=== PATIENT | female | born 1970 | race African-American/Black ===

== ENCOUNTER 2018-03-05 12:39 | Observation (INO) | payer BC, OTHER ==
[2018-03-05] MEDS ORDERED: Sodium Chloride 0.9% 1,000 ML IV ONE ×2 (13:13→17:26)
[2018-03-05] MEDS ORDERED: Ondansetron 4 MG/2 ML SDV IVPUSH ONE (13:13)
[2018-03-05] MEDS ORDERED: Ketorolac 30 MG/ML SDV IVPUSH ONE (13:13)
[2018-03-05] MEDS ORDERED: Morphine 2 MG/ML Syringe IVPUSH ONE ×3 (13:25→17:26)
--- NOTE | 2018-03-05 13:42 | EDM.PDOC ---
ED HPI GENERAL MEDICAL PROBLEM - General Chief Complaint: Abdominal Pain Stated Complaint: LOWER RIGHT QUADRANT ABDOMINAL PAIN Time Seen by Provider: 03/05/18 13:14 Source of Information: Reports: Patient History Limitations: Reports: No Limitations - History of Present Illness INITIAL COMMENTS - FREE TEXT/NARRATIVE: HISTORY AND PHYSICAL: History of present illness: Patient is a 47-year-old female who presents to the emergency room with complaints of right lower quadrant pain. Dates yesterday she did have some generalized low abdominal/pelvic discomfort but was woken up this morning at 7 AM with right lower quadrant pain. She did have an emesis 1. She states that the pain is worse with palpation and movement. Has mild nausea associated with pain. Denies any fever, chills, chest pain, shortness of breath or cough. Denies any vaginal bleeding/discharge, dysuria, diarrhea or constipation. Past ate food at 7 AM, last drink water at 1200. Review of systems: As per history of present illness and below otherwise all systems reviewed and negative. Past medical history: As per history of present illness and as reviewed below otherwise noncontributory. Surgical history: As per history of present illness and as reviewed below otherwise noncontributory. Social history: No reported history of drug or alcohol abuse. Family history: As per history of present illness and as reviewed below otherwise noncontributory. Physical exam: General: Well-developed and well-nourished 47-year-old -[place] female. Alert and oriented. Nontoxic appearing and in no acute distress. HEENT: Atraumatic, normocephalic, pupils equal and reactive bilaterally, negative for conjunctival pallor or scleral icterus, mucous membranes moist, throat clear, neck supple, nontender, trachea midline. No drooling or trismus noted. No meningeal signs Lungs: Clear to auscultation, breath sounds equal bilaterally, chest nontender. Heart: S1S2, regular rate and rhythm without overt murmur Abdomen: Soft, nondistended, right lower quadrant tenderness with rebound tenderness and guarding. Negative for masses or hepatosplenomegaly. Negative for costovertebral tenderness. Pelvis: Stable nontender. Genitourinary: Deferred. Rectal: Deferred. Skin: Intact, warm, dry. No lesions or rashes noted. Extremities: Atraumatic, negative for cords or calf pain. Neurovascular unremarkable. Neuro: Awake, alert, oriented. Cranial nerves II through XII unremarkable. Cerebellum unremarkable. Motor and sensory unremarkable throughout. Exam nonfocal. Notes: Patient has an elevated WBC at 25.06, with RLQ. Dr Leon was paged and informed of this patient, as it is likely an appendicitis. He would like the CT report prior to coming into the ER. CT was read at 1515: But does not give any information about her appendix. Staff is checking with [facility] to have this reviewed again. There is a delay in the official CT report as he did not give any information on the appendix. Staff has informed [facility] and they are having this report/skin reviewed patient is aware of the elevated WBC and delay and CT reading. She states that her pain is starting to return. We'll give her more morphine at this time. 1620: [facility] re-reviewed CT scan. They do not that there is some stranding, nonfocal, of the right lower quadrant but are unable to visualize the appendix. Structures in the right adnexa. This information was shared with , he will come see the patient. 1645: Dr Leon here to see patient. Will admit to observation. Carolyn ordered further CT imaging on this patient. Diagnostics: CBC, CMP, UA, urine , CT abdomen and pelvis Therapeutics: IV fluid, Zofran, Toradol, morphine, Rocephin Impression: Leukocytosis Abdominal Pain Plan: Observation to Med/Surg Definitive disposition and diagnosis as appropriate pending reevaluation and review of above. Onset: Today Duration: Hour(s): Location: Reports: Abdomen Right Lower Abdominal Pain Score (Numeric/FACES): 10 - Related Data Allergies Allergy/AdvReac Type Severity Reaction Status Date / Time erythromycin base Allergy Hives Verified 03/05/18 12:57 Penicillins Allergy Hives Verified 03/05/18 12:57 Sulfa (Sulfonamide Allergy Hives Verified 03/05/18 12:57 Antibiotics) Home Meds: Home Meds Amitriptyline [Elavil] 10 mg PO BEDTIME 06/08/16 [History] Gluc/Kieran-Msm#2/C/D3/Orville/Born [Npeofqntfa-Fotvomiksbj-YNL] 1 tab PO DAILY 06/08 [History] Losartan/Hydrochlorothiazide [Losartan-HCTZ 50-12.5 MG] 1 tab PO DAILY 06/08/16 [History] Ferrous Sulfate [Iron] 1 tab PO DAILY 03/05/18 [History] Labetalol HCl [Labetalol] 100 mg PO BID 03/05/18 [History] Past Medical History HEENT History: Reports: Other (See Below) Other HEENT History: wears glasses Cardiovascular History: Reports: Hypertension Other Cardiovascular History: "murmur as a child" Gastrointestinal History: Reports: Colon Polyp, Other (See Below) Other Gastrointestinal History: occasional heartburn SECURITY ASSOCIATE History: Reports: , Spontaneous Other SECURITY ASSOCIATE History: hx of hysteroscopy Musculoskeletal History: Reports: Osteoarthritis Neurological History: Reports: Migraines, TIA Hematologic History: Reports: Anemia - Past Surgical History Head Surgeries/Procedures: Reports: None HEENT Surgical History: Reports: Oral Surgery Female Surgical History: Reports: Breast Biopsy Social & Family History - Family History Family Medical History: Noncontributory - Tobacco Use Smoking Status *Q: Never Smoker - Caffeine Use Caffeine Use: Reports: Soda - Recreational Drug Use Recreational Drug Use: No ED ROS GENERAL - Review of Systems Review Of Systems: ROS reveals no pertinent complaints other than HPI. ED EXAM, GI/ABD - Physical Exam Exam: See Below (See dictation) Course - Vital Signs Last Recorded V/S: Last Vital Signs Temp 98.1 F 03/05/18 14:39 Pulse 92 03/05/18 14:39 Resp 16 03/05/18 14:39 BP 164/89 H 03/05/18 14:39 Pulse Ox 98 03/05/18 14:39 - Orders/Labs/Meds Orders: Active Orders 24 hr Category Date Time Status Admission Status [Patient Status] [ADT] Stat ADT 03/05/18 17:22 Ordered Notify Provider Consults [RC] ASDIRECTED Care 03/05/18 17:23 Ordered Consult to Physician [CONS] Stat Cons 03/05/18 17:22 Ordered Abdomen Pelvis w Cont [CT] Stat Exams 03/05/18 17:14 Ordered Abdomen Pelvis wo Cont [CT] Stat Exams 03/05/18 13:31 Taken Labs: Laboratory Tests 03/05/18 03/05/18 03/05/18 Range/Units 13:12 13:12 13:17 WBC 25.06 H (4.0-11.0) K/uL RBC 4.58 (4.30-5.90) M/uL Hgb 9.6 L (12.0-16.0) g/dL Hct 32.9 L (36.0-46.0) % MCV 71.8 L (80.0-98.0) fL MCH 21.0 L (27.0-32.0) pg MCHC 29.2 L (31.0-37.0) g/dL RDW Std Deviation 42.6 (28.0-62.0) fl RDW Coeff of Ryanne 16 H (11.0-15.0) % Plt Count 293 (150-400) K/uL MPV 11.30 (7.40-12.00) fL Neut % (Auto) 90.5 H (48.0-80.0) % Lymph % (Auto) 2.0 L (16.0-40.0) % [place] % (Auto) 7.4 (0.0-15.0) % Eos % (Auto) 0.0 (0.0-7.0) % Baso % (Auto) 0.1 (0.0-1.5) % Neut # (Auto) 22.7 H (1.4-5.7) K/uL Lymph # (Auto) 0.5 L (0.6-2.4) K/uL [place] # (Auto) 1.9 H (0.0-0.8) K/uL Eos # (Auto) 0.0 (0.0-0.7) K/uL Baso # (Auto) 0.0 (0.0-0.1) K/uL Nucleated RBC % 0.0 /100WBC Nucleated RBCs # 0 K/uL Sodium (136-145) mmol/L Potassium (3.5-5.1) mmol/L Chloride (98-107) mmol/L Carbon Dioxide (21.0-32.0) mmol/L BUN (7.0-18.0) mg/dL Creatinine (0.6-1.0) mg/dL Est Cr Clr Drug Dosing mL/min Estimated GFR (MDRD) ml/min Glucose (74-106) mg/dL Calcium (8.5-10.1) mg/dL Total Bilirubin (0.2-1.0) mg/dL AST (15-37) IU/L ALT (14-63) IU/L Alkaline Phosphatase (46-116) U/L Total Protein (6.4-8.2) g/dL Albumin (3.4-5.0) g/dL Globulin (2.0-3.5) g/dL Albumin/Globulin Ratio (1.3-2.8) Urine Color YELLOW Urine Appearance CLEAR Urine pH 6.5 (5.0-8.0) Ur Specific [place] 1.020 (1.001-1.035) Urine Protein NEGATIVE (NEGATIVE) mg/dL Urine Glucose (UA) 100 H (NEGATIVE) mg/dL Urine Ketones NEGATIVE (NEGATIVE) mg/dL Urine Occult Blood NEGATIVE (NEGATIVE) Urine Nitrite NEGATIVE (NEGATIVE) Urine Bilirubin NEGATIVE (NEGATIVE) Urine Urobilinogen 0.2 (<2.0) EU/dL Ur Leukocyte Esterase NEGATIVE (NEGATIVE) Urine RBC 0-1 (0-2/HPF) Urine WBC 0-1 (0-5/HPF) Ur Epithelial Cells MODERATE (NONE-FEW) Urine Bacteria FEW (NEGATIVE) Urine Mucus LIGHT (NONE-MOD) Urine HCG, Qual NEGATIVE (NEGATIVE) 03/05/18 Range/Units 13:17 WBC (4.0-11.0) K/uL RBC (4.30-5.90) M/uL Hgb (12.0-16.0) g/dL Hct (36.0-46.0) % MCV (80.0-98.0) fL MCH (27.0-32.0) pg MCHC (31.0-37.0) g/dL RDW Std Deviation (28.0-62.0) fl RDW Coeff of [place] (11.0-15.0) % Plt Count (150-400) K/uL MPV (7.40-12.00) fL Neut % (Auto) (48.0-80.0) % Lymph % (Auto) (16.0-40.0) % [place] % (Auto) (0.0-15.0) % Eos % (Auto) (0.0-7.0) % Baso % (Auto) (0.0-1.5) % Neut # (Auto) (1.4-5.7) K/uL Lymph # (Auto) (0.6-2.4) K/uL [place] # (Auto) (0.0-0.8) K/uL Eos # (Auto) (0.0-0.7) K/uL Baso # (Auto) (0.0-0.1) K/uL Nucleated RBC % /100WBC Nucleated RBCs # K/uL Sodium 136 (136-145) mmol/L Potassium 3.3 L (3.5-5.1) mmol/L Chloride 101 (98-107) mmol/L Carbon Dioxide 26.7 (21.0-32.0) mmol/L BUN 9 (7.0-18.0) mg/dL Creatinine 0.8 (0.6-1.0) mg/dL Est Cr Clr Drug Dosing 84.54 mL/min Estimated GFR (MDRD) > 60.0 ml/min Glucose 131 H (74-106) mg/dL Calcium 9.1 (8.5-10.1) mg/dL Total Bilirubin 1.3 H (0.2-1.0) mg/dL AST 9 L (15-37) IU/L ALT 13 L (14-63) IU/L Alkaline Phosphatase 49 (46-116) U/L Total Protein 7.9 (6.4-8.2) g/dL Albumin 4.1 (3.4-5.0) g/dL Globulin 3.8 H (2.0-3.5) g/dL Albumin/Globulin Ratio 1.1 L (1.3-2.8) Urine Color Urine Appearance Urine pH (5.0-8.0) Ur Specific [place] (1.001-1.035) Urine Protein (NEGATIVE) mg/dL Urine Glucose (UA) (NEGATIVE) mg/dL Urine Ketones (NEGATIVE) mg/dL Urine Occult Blood (NEGATIVE) Urine Nitrite (NEGATIVE) Urine Bilirubin (NEGATIVE) Urine Urobilinogen (<2.0) EU/dL Ur Leukocyte Esterase (NEGATIVE) Urine RBC (0-2/HPF) Urine WBC (0-5/HPF) Ur Epithelial Cells (NONE-FEW) Urine Bacteria (NEGATIVE) Urine Mucus (NONE-MOD) Urine HCG, Qual (NEGATIVE) Meds: Medications Discontinued Medications Generic Name Dose Route Start Last Admin Trade Name Freq PRN Reason Stop Dose Admin Sodium Chloride 1,000 mls @ 999 mls/hr 03/05/18 13:13 03/05/18 13:23 Normal Saline IV 03/05/18 14:13 999 mls/hr STAT ONE Administration Ketorolac Tromethamine 30 mg 03/05/18 13:13 03/05/18 13:24 Toradol IVPUSH 03/05/18 13:14 30 mg ONETIME ONE Administration Morphine Sulfate 2 mg 03/05/18 13:25 03/05/18 13:33 Morphine IVPUSH 03/05/18 13:26 2 mg ONETIME ONE Administration Morphine Sulfate 2 mg 03/05/18 13:58 03/05/18 15:45 Morphine IVPUSH 03/05/18 13:59 2 mg ONETIME ONE Administration Ondansetron HCl 4 mg 03/05/18 13:13 03/05/18 13:24 Zofran IVPUSH 03/05/18 13:14 4 mg ONETIME ONE Administration Departure - Departure Time of Disposition: 17:25 Disposition: Home, Self-Care 01 Clinical Impression: Leukocytosis Qualifiers: Leukocytosis type: unspecified Qualified Code(s): D72.829 - Elevated white blood cell count, unspecified Abdominal pain Qualifiers: Abdominal location: right lower quadrant Qualified Code(s): R10.31 - Right lower quadrant pain - Discharge Information Referrals: Augusto Witt MD [Primary Care Provider] - Forms: ED Department Discharge - My Orders Last 24 Hours: My Active Orders 03/05/18 13:31 Abdomen Pelvis wo Cont [CT] Stat 03/05/18 17:22 Admission Status [Patient Status] [ADT] Stat Consult to Physician [CONS] Stat 03/05/18 17:23 Notify Provider Consults [RC] ASDIRECTED - Assessment/Plan Last 24 Hours: My Active Orders 03/05/18 13:31 Abdomen Pelvis wo Cont [CT] Stat 03/05/18 17:22 Admission Status [Patient Status] [ADT] Stat Consult to Physician [CONS] Stat 03/05/18 17:23 Notify Provider Consults [RC] ASDIRECTED
[2018-03-05 13:51] LABS: CHLORIDE,CL 101 mmol/L (98-107); SODIUM,NA 136 mmol/L (136-145)
[2018-03-05] MEDS ORDERED: Levofloxacin/Dextrose 5%-Water 750 MG in Premix Bag 1 BAG IV ONE (17:28)
[2018-03-05] MEDS ORDERED: Morphine 2 MG/ML Syringe IVPUSH PRN (17:46)
[2018-03-05] MEDS ORDERED: Iopamidol 755 MG/ML 500 ML Multipack Bottle IVPUSH STA (18:51)
[2018-03-05] MEDS ORDERED: Ondansetron 4 MG/2 ML SDV IVPUSH PRN (22:44)
[2018-03-06] MEDS: traMADol 50 MG Tab PO PRN (00:39)
[2018-03-06] MEDS: Lactated Ringers 1,000 ML IV SCH ×3 (02:01→19:41)
[2018-03-06 06:43] LABS: CHLORIDE,CL 105 mmol/L (98-107); SODIUM,NA 136 mmol/L (136-145)
--- NOTE | 2018-03-06 08:31 | CONS ---
DATE OF CONSULTATION: 03/05/2018 DATE OF : 1970 PRIMARY CARE PHYSICIAN: Augusto Witt MD CONCERNING QUESTION: Leukocytosis, abdominal pain. HISTORY OF PRESENT ILLNESS: The patient is a 47-year-old obese lady, complained of a 12- hour history of acute onset of right lower quadrant pain. Pain persists and seen in the emergency room and CAT scan workup shows finding in the uterus probably fibroids and questionable mass of 3.6 cm and appendix is not observable and there is no dirty fat in the right lower quadrant or foot. The patient remarked the pain is constant and been hurting for almost like 12-hour and getting two doses of morphine and denied prior episode. Denied fever, chill, or diarrhea. Denied bright red blood per rectum and denied UTI symptoms. The patient has a history of fibroid surgery from Dr. Venegas here 18 months ago. The patient reports no problem after the surgery. PAST MEDICAL HISTORY: Significant for hypertension. Denied diabetes, PA, CVA. The patient does have some TIA symptoms 6 years ago. PAST SURGICAL HISTORY: Surgery mattson, the patient has breast augmentation, endometriosis procedure, fibroid procedure, and normal vaginal delivery x3. FAMILY HISTORY: Noncontributory. SOCIAL HISTORY: The patient denies alcohol use. ALLERGIES TO MEDICATION: Please refer to nursing for details. PHYSICAL EXAMINATION: GENERAL: A very pleasant nice lady, appropriate for age, in no acute distress. However, the patient is difficult exam because of pain in fact the patient to the point of refuse. HEENT: Normocephalic and atraumatic. Sclerae anicteric. LUNGS: Clear to auscultation. HEART: Regular rate and rhythm. ABDOMEN: Soft, nondistended. No pulsating tender midline abdominal structure. Nontender in the left lower quadrant. Right lower quadrant, just touching on the skin, the patient screamed in pain and would prefer not to be examined per patient request. IMPRESSION: Right lower quadrant pain and initial CAT scan without contrast does not show appendicitis or any defects such as infectious on the right lower quadrant. Discussed with the Radiology and recommend: 1. Repeat CT scan of pelvis and abdomen with p.o. and IV contrast. 2. Will benefit to have a pelvic ultrasound to assess the abnormality in the uterine and also would like to repeat the white count to assess leukocytosis. For the time being, I will continue IV fluids and give IV antibiotic and request the hospitalist as well as HEALTHCARE CONSULTING MANAGER consult. Management will be depending on the repeat CAT scan results. ISRA / MILAGRO /[id number]
--- NOTE | 2018-03-06 09:03 | PCM.SURGPN ---
- General Info Date of Service: 03/06/18 Functional Status: Reports: Pain Controlled (pain much better this morning, took a shower by herself) - Patient Data Vitals - Most Recent: Last Vital Signs Temp 97.2 F 03/06/18 04:00 Pulse 58 L 03/06/18 04:00 Resp 18 03/06/18 04:00 BP 160/84 H 03/06/18 04:00 Pulse Ox 97 03/06/18 04:00 Weight - Most Recent: 168 lb 8 oz I&O - Last 24 Hours: Intake & Output 03/05/18 03/06/18 03/06/18 22:59 06:59 14:59 Intake Total 762 Output Total 550 Balance 212 Lab Results Last 24 Hrs: Laboratory Results - last 24 hr 03/05/18 03/05/18 03/05/18 Range/Units 13:12 13:12 13:17 WBC 25.06 H (4.0-11.0) K/uL RBC 4.58 (4.30-5.90) M/uL Hgb 9.6 L (12.0-16.0) g/dL Hct 32.9 L (36.0-46.0) % MCV 71.8 L (80.0-98.0) fL MCH 21.0 L (27.0-32.0) pg MCHC 29.2 L (31.0-37.0) g/dL RDW Std Deviation 42.6 (28.0-62.0) fl RDW Coeff of Ryanne 16 H (11.0-15.0) % Plt Count 293 (150-400) K/uL MPV 11.30 (7.40-12.00) fL Neut % (Auto) 90.5 H (48.0-80.0) % Lymph % (Auto) 2.0 L (16.0-40.0) % [place] % (Auto) 7.4 (0.0-15.0) % Eos % (Auto) 0.0 (0.0-7.0) % Baso % (Auto) 0.1 (0.0-1.5) % Neut # (Auto) 22.7 H (1.4-5.7) K/uL Lymph # (Auto) 0.5 L (0.6-2.4) K/uL [place] # (Auto) 1.9 H (0.0-0.8) K/uL Eos # (Auto) 0.0 (0.0-0.7) K/uL Baso # (Auto) 0.0 (0.0-0.1) K/uL Nucleated RBC % 0.0 /100WBC Nucleated RBCs # 0 K/uL Sodium (136-145) mmol/L Potassium (3.5-5.1) mmol/L Chloride (98-107) mmol/L Carbon Dioxide (21.0-32.0) mmol/L BUN (7.0-18.0) mg/dL Creatinine (0.6-1.0) mg/dL Est Cr Clr Drug Dosing mL/min Estimated GFR (MDRD) ml/min Glucose (74-106) mg/dL Calcium (8.5-10.1) mg/dL Total Bilirubin (0.2-1.0) mg/dL AST (15-37) IU/L ALT (14-63) IU/L Alkaline Phosphatase (46-116) U/L Total Protein (6.4-8.2) g/dL Albumin (3.4-5.0) g/dL Globulin (2.0-3.5) g/dL Albumin/Globulin Ratio (1.3-2.8) Urine Color YELLOW Urine Appearance CLEAR Urine pH 6.5 (5.0-8.0) Ur Specific [place] 1.020 (1.001-1.035) Urine Protein NEGATIVE (NEGATIVE) mg/dL Urine Glucose (UA) 100 H (NEGATIVE) mg/dL Urine Ketones NEGATIVE (NEGATIVE) mg/dL Urine Occult Blood NEGATIVE (NEGATIVE) Urine Nitrite NEGATIVE (NEGATIVE) Urine Bilirubin NEGATIVE (NEGATIVE) Urine Urobilinogen 0.2 (<2.0) EU/dL Ur Leukocyte Esterase NEGATIVE (NEGATIVE) Urine RBC 0-1 (0-2/HPF) Urine WBC 0-1 (0-5/HPF) Ur Epithelial Cells MODERATE (NONE-FEW) Urine Bacteria FEW (NEGATIVE) Urine Mucus LIGHT (NONE-MOD) Urine HCG, Qual NEGATIVE (NEGATIVE) 03/05/18 03/06/18 03/06/18 Range/Units 13:17 06:13 06:13 WBC 15.38 H (4.0-11.0) K/uL RBC 3.86 L (4.30-5.90) M/uL Hgb 8.0 L (12.0-16.0) g/dL Hct 27.5 L (36.0-46.0) % MCV 71.2 L (80.0-98.0) fL MCH 20.7 L (27.0-32.0) pg MCHC 29.1 L (31.0-37.0) g/dL RDW Std Deviation 42.4 (28.0-62.0) fl RDW Coeff of Ryanne 16 H (11.0-15.0) % Plt Count 249 (150-400) K/uL MPV 10.70 (7.40-12.00) fL Neut % (Auto) 85.9 H (48.0-80.0) % Lymph % (Auto) 7.8 L (16.0-40.0) % [place] % (Auto) 5.7 (0.0-15.0) % Eos % (Auto) 0.4 (0.0-7.0) % Baso % (Auto) 0.2 (0.0-1.5) % Neut # (Auto) 13.2 H (1.4-5.7) K/uL Lymph # (Auto) 1.2 (0.6-2.4) K/uL [place] # (Auto) 0.9 H (0.0-0.8) K/uL Eos # (Auto) 0.1 (0.0-0.7) K/uL Baso # (Auto) 0.0 (0.0-0.1) K/uL Nucleated RBC % 0.0 /100WBC Nucleated RBCs # 0 K/uL Sodium 136 136 (136-145) mmol/L Potassium 3.3 L 3.4 L (3.5-5.1) mmol/L Chloride 101 105 (98-107) mmol/L Carbon Dioxide 26.7 26.3 (21.0-32.0) mmol/L BUN 9 7 (7.0-18.0) mg/dL Creatinine 0.8 0.7 (0.6-1.0) mg/dL Est Cr Clr Drug Dosing 84.54 96.62 mL/min Estimated GFR (MDRD) > 60.0 > 60.0 ml/min Glucose 131 H 90 (74-106) mg/dL Calcium 9.1 7.9 L (8.5-10.1) mg/dL Total Bilirubin 1.3 H 1.5 H (0.2-1.0) mg/dL AST 9 L 10 L (15-37) IU/L ALT 13 L 10 L (14-63) IU/L Alkaline Phosphatase 49 39 L (46-116) U/L Total Protein 7.9 6.1 L (6.4-8.2) g/dL Albumin 4.1 2.8 L (3.4-5.0) g/dL Globulin 3.8 H 3.3 (2.0-3.5) g/dL Albumin/Globulin Ratio 1.1 L 0.9 L (1.3-2.8) Urine Color Urine Appearance Urine pH (5.0-8.0) Ur Specific [place] (1.001-1.035) Urine Protein (NEGATIVE) mg/dL Urine Glucose (UA) (NEGATIVE) mg/dL Urine Ketones (NEGATIVE) mg/dL Urine Occult Blood (NEGATIVE) Urine Nitrite (NEGATIVE) Urine Bilirubin (NEGATIVE) Urine Urobilinogen (<2.0) EU/dL Ur Leukocyte Esterase (NEGATIVE) Urine RBC (0-2/HPF) Urine WBC (0-5/HPF) Ur Epithelial Cells (NONE-FEW) Urine Bacteria (NEGATIVE) Urine Mucus (NONE-MOD) Urine HCG, Qual (NEGATIVE) Med Orders - Current: Current Medications Lactated Ringer's (Ringers, Lactated) 1,000 mls @ 125 mls/hr IV ASDIRECTED [facility] Last Admin: 03/06/18 02:01 Dose: 125 mls/hr Morphine Sulfate (Morphine) 2 mg IVPUSH Q6H PRN PRN Reason: Pain Ondansetron HCl (Zofran) 4 mg IVPUSH Q8H PRN PRN Reason: Nausea/Vomiting Pantoprazole Sodium (Protonix Iv) 40 mg IVPUSH DAILY [facility] Tramadol HCl (Ultram) 50 mg PO Q8H PRN PRN Reason: Pain Last Admin: 03/06/18 00:39 Dose: 50 mg Discontinued Medications Sodium Chloride (Normal Saline) 1,000 mls @ 999 mls/hr IV STAT ONE Stop: 03/05/18 14:13 Last Admin: 03/05/18 13:23 Dose: 999 mls/hr Sodium Chloride (Normal Saline) 1,000 mls @ 125 mls/hr IV STAT ONE Stop: 03/06/18 01:25 Last Admin: 03/05/18 17:37 Dose: 125 mls/hr Levofloxacin/Dextrose 750 mg/ (Premix) 150 mls @ 100 mls/hr IV ONETIME ONE Stop: 03/05/18 18:57 Last Admin: 03/05/18 17:38 Dose: 100 mls/hr Iopamidol (Isovue Multipack-370 (76%)) 100 ml IVPUSH ONETIME STA Stop: 03/05/18 18:52 Last Admin: 03/05/18 18:52 Dose: 100 ml Ketorolac Tromethamine (Toradol) 30 mg IVPUSH ONETIME ONE Stop: 03/05/18 13:14 Last Admin: 03/05/18 13:24 Dose: 30 mg Morphine Sulfate (Morphine) 2 mg IVPUSH ONETIME ONE Stop: 03/05/18 13:26 Last Admin: 03/05/18 13:33 Dose: 2 mg Morphine Sulfate (Morphine) 2 mg IVPUSH ONETIME ONE Stop: 03/05/18 13:59 Last Admin: 03/05/18 15:45 Dose: 2 mg Morphine Sulfate (Morphine) 2 mg IVPUSH ONETIME ONE Stop: 03/05/18 17:27 Last Admin: 03/05/18 19:16 Dose: Not Given Ondansetron HCl (Zofran) 4 mg IVPUSH ONETIME ONE Stop: 03/05/18 13:14 Last Admin: 03/05/18 13:24 Dose: 4 mg - Exam General: Alert, Oriented GI/Abdominal Exam: Soft, No Distention - Problem List Review Problem List Initiated/Reviewed/Updated: Yes - My Orders Last 24 Hours: Active Orders 24 hr Category Date Time Status Admission Status [Patient Status] [ADT] Stat ADT 03/05/18 17:22 Active Daily Weight [Height and Weight] [RC] DAILY Care 03/05/18 17:47 Active Intake and Output Strict [RC] Q12H Care 03/05/18 17:48 Active Notify Provider Consults [RC] ASDIRECTED Care 03/05/18 17:23 Active Consult to Physician [CONS] Stat Cons 03/05/18 17:22 Active NPO [Nothing Per Oral Diet] [DIET] Diet 03/06/18 Breakfast Active Abdomen Pelvis w Cont [CT] Stat Exams 03/05/18 17:14 Taken Abdomen Pelvis wo Cont [CT] Stat Exams 03/05/18 13:31 Taken Pelvis Non OB Comp [US] Routine Exams 03/06/18 09:00 Ordered Lactated Ringers [Ringers, Lactated] 1,000 ml Med 03/05/18 18:00 Active IV ASDIRECTED Morphine Med 03/05/18 17:46 Active 2 mg IVPUSH Q6H PRN Ondansetron [Zofran] Med 03/05/18 22:44 Active 4 mg IVPUSH Q8H PRN Pantoprazole [ProTONIX IV] Med 03/06/18 09:00 Active 40 mg IVPUSH DAILY traMADol [Ultram] Med 03/05/18 22:43 Active 50 mg PO Q8H PRN Medication Orders Lactated Ringer's (Ringers, Lactated) 1,000 mls @ 125 mls/hr IV ASDIRECTED [facility] Last Admin: 03/06/18 02:01 Dose: 125 mls/hr Morphine Sulfate (Morphine) 2 mg IVPUSH Q6H PRN PRN Reason: Pain Ondansetron HCl (Zofran) 4 mg IVPUSH Q8H PRN PRN Reason: Nausea/Vomiting Pantoprazole Sodium (Protonix Iv) 40 mg IVPUSH DAILY [facility] Tramadol HCl (Ultram) 50 mg PO Q8H PRN PRN Reason: Pain Last Admin: 03/06/18 00:39 Dose: 50 mg - Assessment Assessment (Free Text/Narrative):: doing much better; repeat ct > no ct evidence of appendicitis; h/h dropped a bit ; will recheck; equipment oiler consult for recurrent fibroid with pedunculated mass - Plan Plan (Free Text/Narrative):: doing much better; repeat ct > no ct evidence of appendicitis; h/h dropped a bit ; will recheck; equipment oiler consult for recurrent fibroid with pedunculated mass
[2018-03-06] MEDS: Pantoprazole 40 MG Vial IVPUSH SCH (09:24)
--- NOTE | 2018-03-06 16:08 | CT ---
EXAM DATE: 03/05/18 PATIENT'S AGE: 47 Patient: RALPH ZEPEDA Facility: [place], [place] Site . Site : 1970 Study: CT Abdomen/Pelvis [id number] 2:26:38 PM Ordering Physician: Doctor Figueroa Final Report: INDICATION: Right lower quadrant pain. TECHNIQUE: CT of abdomen and pelvis performed without oral IV contrast. FINDINGS: Bilateral breast implants. Trace amount of pericardial fluid. Contracted gallbladder. Small calcifications in the pelvis bilaterally which I suspect are phleboliths. The distal ureters are not well visualized; however I suspect these calcifications in the pelvis lie outside of the ureters. The right mid and proximal ureter is mildly prominent. Mildly prominent lymph node in the right inguinal region measuring 1.4 cm and likely reactive in nature. Additional mildly prominent bilateral inguinal lymph nodes. The uterus is enlarged to moderately prominent degree and is bulbous. Abnormal mixed density in the central uterus which is centrally at isodense to the myometrium and peripherally low density. This soft tissue density is seen on image 93 and measures up to 3-4 cm in AP dimension. I cannot exclude an endometrial mass or less likely a myometrial mass. Recommend pelvic ultrasound to exclude an endometrial mass or large polyp including neoplasm. 3.5 cm cystic lesion in the right ovary with which may be a physiologic cyst. Moderate amount of stool in the colon. Small lymph nodes in the abdominal retroperitoneum. Moderate amount of stool in the distal rectum and colon. Remainder negative. IMPRESSION: 1. The uterus is moderate to markedly enlarged and heterogeneous and bulbous. In the central uterus there is at the suggestion of a mass measuring 3-4 cm with surrounding low density. This could suggest an abnormality in the endometrium including a mass/neoplasm. Myometrial abnormality would be thought to be less likely. Recommend correlation with pelvic ultrasound to exclude endometrial abnormality. 2. 3.5 cm cystic lesion right ovary but nonspecific and can be further evaluated with pelvic ultrasound also. 3. Moderate amount of stool in the colon. 4. Mild lymph node prominence in the inguinal regions likely reactive. Other findings as above. Please note that all CT scans at this facility use dose modulation, iterative reconstruction, and/or weight-based dosing when appropriate to reduce radiation dose to as low as reasonably achievable. Dictated by Oscar Seaman MD @ Mar 05 2018 3:00PM (Electronic Signature) Report Signed by Proxy. MTDD
--- NOTE | 2018-03-06 16:10 | US ---
EXAMINATION: Transabdominal pelvic ultrasound HISTORY: Pain COMPARISON: CT dated 03/05/2018 TECHNIQUE: Grayscale, spectral Doppler and color Doppler imaging obtained. FINDINGS: The uterus is enlarged and heterogeneous measuring 12 x 11 x 10.6 cm. Endometrial stripe is mildly prominent however not well characterized 1.4 cm. Both the left and right ovaries are normal in size, contour, and echogenicity containing several smal l simple cysts. No adnexal masses. No significant free pelvic fluid. IMPRESSION: 1. The uterus is enlarged and heterogeneous containing multiple ill-defined fibroids.
--- NOTE | 2018-03-06 17:24 | PCM.CONS ---
<Jn Hickman - Last Filed: 03/06/18 17:16> H&P History of Present Illness - General Date of Service: 03/06/18 Admit Problem/Dx: Admission Diagnosis/Problem Admission Diagnosis/Problem Leukocytosis - History of Present Illness Initial Comments - Free Text/Narative: Virginia Rick is a 47 y/o female who presented yesterday to the ER complaining of right lower abdominal pain. Rated 10/10, constant and sharp. She did endorse some nausea and emesis x1. In addition, some black diarrhea possibly secondary to antibiotics. In the ER she was noted to have a white count of 25, now down to 15 after one dose of Levaquin. In addition, Dr. Leon was consulted for possible acute appendicitis. CT abdomen/pelvis, did not show acute appendicitis. It did show residual uterine fibroids and right ovarian cyst. Today, the patient stated that her abdominal pain was more tolerable. [place] like "crampy". Down to 5/10. She is able to ambulate to the bathroom. She also states she is hungry since she had been NPO over night. Denies any emesis, no vaginal discharge. No sick contacts. Right Lower Abdominal Pain Score (Numeric/FACES): 6 - Related Data Allergies/Adverse Reactions: Allergies Allergy/AdvReac Type Severity Reaction Status Date / Time erythromycin base Allergy Hives Verified 03/05/18 12:57 Penicillins Allergy Hives Verified 03/05/18 12:57 Sulfa (Sulfonamide Allergy Hives Verified 03/05/18 12:57 Antibiotics) Home Medications: Home Meds Amitriptyline [Elavil] 10 mg PO BEDTIME 06/08/16 [History] Gluc/Kieran-Msm#2/C/D3/[place]/Born [Dnaadcqxwk-Pbzmbmtbqmr-MMR] 1 tab PO DAILY 06/08 [History] Losartan/Hydrochlorothiazide [Losartan-HCTZ 50-12.5 MG] 1 tab PO DAILY 06/08/16 [History] Ferrous Sulfate [Iron] 1 tab PO DAILY 03/05/18 [History] Labetalol HCl [Labetalol] 100 mg PO BID 03/05/18 [History] Past Medical History HEENT History: Reports: Other (See Below) Other HEENT History: wears glasses Cardiovascular History: Reports: Hypertension Other Cardiovascular History: "murmur as a child" Gastrointestinal History: Reports: Colon Polyp, Other (See Below) Other Gastrointestinal History: occasional heartburn DATABASE SECURITY ADMINISTRATOR History: Reports: , Spontaneous Other OB/BYN History: hx of hysteroscopy Musculoskeletal History: Reports: Osteoarthritis Neurological History: Reports: Migraines, TIA Hematologic History: Reports: Anemia - Past Surgical History Head Surgeries/Procedures: Reports: None HEENT Surgical History: Reports: Oral Surgery Cardiovascular Surgical History: Reports: None GI Surgical History: Reports: Polypectomy Female Surgical History: Reports: Breast Biopsy Social & Family History - Family History Family Medical History: Noncontributory - Tobacco Use Smoking Status *Q: Never Smoker - Caffeine Use Caffeine Use: Reports: None - Recreational Drug Use Recreational Drug Use: No H&P Review of Systems - Review of Systems: Review Of Systems: ROS reveals no pertinent complaints other than HPI. Exam - Exam Exam: See Below - Vital Signs Vital Signs: Last Vital Signs Temp 37.0 C 03/06/18 16:00 Pulse 79 03/06/18 16:00 Resp 18 03/06/18 16:00 BP 186/91 H 03/06/18 16:00 Pulse Ox 95 03/06/18 16:00 Weight: 76.43 kg - Exam General: Alert, Oriented, Cooperative HEENT: Conjunctiva Clear, Posterior Pharynx Clear, Pupils Equal, Pupils Reactive Neck: Supple Lungs: Clear to Auscultation, Normal Respiratory Effort Cardiovascular: Regular Rate, Regular Rhythm GI/Abdominal Exam: Normal Bowel Sounds, Soft, No Distention, Tender, Other ( bilateral leg raise was negative. however, patient was tender on RLQ with palpation. No rebound. Non tender in other quadrants.) Skin: Warm, Dry Neurological: Cranial Nerves Intact Neuro Extensive - Mental Status: Alert, Oriented x3, Normal Mood/Affect Psychiatric: Alert, Normal Affect - Patient Data Lab Results Last 24 hrs: Laboratory Results - last 24 hr 03/06/18 03/06/18 Range/Units 06:13 06:13 WBC 15.38 H (4.0-11.0) K/uL RBC 3.86 L (4.30-5.90) M/uL Hgb 8.0 L (12.0-16.0) g/dL Hct 27.5 L (36.0-46.0) % MCV 71.2 L (80.0-98.0) fL MCH 20.7 L (27.0-32.0) pg MCHC 29.1 L (31.0-37.0) g/dL RDW Std Deviation 42.4 (28.0-62.0) fl RDW Coeff of [place] 16 H (11.0-15.0) % Plt Count 249 (150-400) K/uL MPV 10.70 (7.40-12.00) fL Neut % (Auto) 85.9 H (48.0-80.0) % Lymph % (Auto) 7.8 L (16.0-40.0) % [place] % (Auto) 5.7 (0.0-15.0) % Eos % (Auto) 0.4 (0.0-7.0) % Baso % (Auto) 0.2 (0.0-1.5) % Neut # (Auto) 13.2 H (1.4-5.7) K/uL Lymph # (Auto) 1.2 (0.6-2.4) K/uL [place] # (Auto) 0.9 H (0.0-0.8) K/uL Eos # (Auto) 0.1 (0.0-0.7) K/uL Baso # (Auto) 0.0 (0.0-0.1) K/uL Nucleated RBC % 0.0 /100WBC Nucleated RBCs # 0 K/uL Sodium 136 (136-145) mmol/L Potassium 3.4 L (3.5-5.1) mmol/L Chloride 105 (98-107) mmol/L Carbon Dioxide 26.3 (21.0-32.0) mmol/L BUN 7 (7.0-18.0) mg/dL Creatinine 0.7 (0.6-1.0) mg/dL Est Cr Clr Drug Dosing 96.62 mL/min Estimated GFR (MDRD) > 60.0 ml/min Glucose 90 (74-106) mg/dL Calcium 7.9 L (8.5-10.1) mg/dL Total Bilirubin 1.5 H (0.2-1.0) mg/dL AST 10 L (15-37) IU/L ALT 10 L (14-63) IU/L Alkaline Phosphatase 39 L (46-116) U/L Total Protein 6.1 L (6.4-8.2) g/dL Albumin 2.8 L (3.4-5.0) g/dL Globulin 3.3 (2.0-3.5) g/dL Albumin/Globulin Ratio 0.9 L (1.3-2.8) Result Diagrams: 03/06/18 06:13 03/06/18 06:13 Consult PN Assessment/Plan Procedures: Procedures CT THORAX W/DYE (02/26/16) HEP B SURFACE ANTIBODY (08/05/15) HPV HIGH-RISK TYPES (01/16/16) HYSTEROSCOPY REMOVE MYOMA (06/10/16) MUMPS ANTIBODY (08/05/15) RUBELLA ANTIBODY (08/05/15) RUBEOLA ANTIBODY (08/05/15) TB TEST CELL IMMUN MEASURE (08/05/15) TISSUE EXAM BY PATHOLOGIST (06/10/16) URINE TEST (06/10/16) VARICELLA-ZOSTER ANTIBODY (08/05/15) Problem List Initiated/Reviewed/Updated: Yes Plan: 1. Abdominal pain, improved. Uncertain etiology. I suspect that the pain may be due to gastroenteritis vs ruptured ovarian cyst. Dr. Leon was consulted and he does not think it is acute appendicitis. Ordered stool studies. Will continue to monitor. 2. Leukocytosis, imporoving. Possibly secondary to gastroenteritis. Will continue to monitor for now. 3. Microcytic anemia- Hg 8.0. Pending stool occult testing. Will order iron studies to further evaluate this. Looks like iron deficient anemia. Ordered type /screen. Consider transfusing with 2 units PRBCs if Hg<7. 4. Hypokalemia- willl replete with KCl 40 mEq PO once. Will recheck tomorrow. Diet: advance as tolerated. Disposition: 1-2 days <Christopher Damon - Last Filed: 03/07/18 11:51> H&P History of Present Illness - General Admit Problem/Dx: Admission Diagnosis/Problem Admission Diagnosis/Problem Leukocytosis Exam - Vital Signs Vital Signs: Last Vital Signs Temp 36.2 C 03/07/18 11:35 Pulse 78 03/07/18 11:35 Resp 18 03/07/18 11:35 BP 135/70 03/07/18 11:35 Pulse Ox 97 03/07/18 11:35 - Patient Data Lab Results Last 24 hrs: Laboratory Results - last 24 hr 03/06/18 03/07/18 03/07/18 Range/Units 17:57 05:10 05:10 WBC 7.78 (4.0-11.0) K/uL RBC 3.75 L (4.30-5.90) M/uL Hgb 7.7 L (12.0-16.0) g/dL Hct 26.7 L (36.0-46.0) % MCV 71.2 L (80.0-98.0) fL MCH 20.5 L (27.0-32.0) pg MCHC 28.8 L (31.0-37.0) g/dL RDW Std Deviation 43.0 (28.0-62.0) fl RDW Coeff of [place] 17 H (11.0-15.0) % Plt Count 251 (150-400) K/uL MPV 10.90 (7.40-12.00) fL Neut % (Auto) 66.3 (48.0-80.0) % Lymph % (Auto) 20.6 (16.0-40.0) % [place] % (Auto) 9.8 (0.0-15.0) % Eos % (Auto) 3.0 (0.0-7.0) % Baso % (Auto) 0.3 (0.0-1.5) % Neut # (Auto) 5.2 (1.4-5.7) K/uL Lymph # (Auto) 1.6 (0.6-2.4) K/uL [place] # (Auto) 0.8 (0.0-0.8) K/uL Eos # (Auto) 0.2 (0.0-0.7) K/uL Baso # (Auto) 0.0 (0.0-0.1) K/uL Nucleated RBC % 0.0 /100WBC Nucleated RBCs # 0 K/uL INR Sodium 139 (136-145) mmol/L Potassium 3.5 (3.5-5.1) mmol/L Chloride 105 (98-107) mmol/L Carbon Dioxide 26.3 (21.0-32.0) mmol/L BUN 6 L (7.0-18.0) mg/dL Creatinine 0.7 (0.6-1.0) mg/dL Est Cr Clr Drug Dosing 96.62 mL/min Estimated GFR (MDRD) > 60.0 ml/min Glucose 99 (74-106) mg/dL Calcium 8.4 L (8.5-10.1) mg/dL Iron (50-175) ug/dL TIBC (250-450) ug/dL % Saturation (20-55) % Ferritin (8-252) ng/mL Total Bilirubin 0.7 (0.2-1.0) mg/dL AST 17 (15-37) IU/L ALT 20 (14-63) IU/L Alkaline Phosphatase 40 L (46-116) U/L Total Protein 6.3 L (6.4-8.2) g/dL Albumin 3.0 L (3.4-5.0) g/dL Globulin 3.3 (2.0-3.5) g/dL Albumin/Globulin Ratio 0.9 L (1.3-2.8) Blood Type A POSITIVE Antibody Screen NEGATIVE Crossmatch See Detail 03/07/18 03/07/18 Range/Units 05:10 09:13 WBC (4.0-11.0) K/uL RBC (4.30-5.90) M/uL Hgb (12.0-16.0) g/dL Hct (36.0-46.0) % MCV (80.0-98.0) fL MCH (27.0-32.0) pg MCHC (31.0-37.0) g/dL RDW Std Deviation (28.0-62.0) fl RDW Coeff of [place] (11.0-15.0) % Plt Count (150-400) K/uL MPV (7.40-12.00) fL Neut % (Auto) (48.0-80.0) % Lymph % (Auto) (16.0-40.0) % [place] % (Auto) (0.0-15.0) % Eos % (Auto) (0.0-7.0) % Baso % (Auto) (0.0-1.5) % Neut # (Auto) (1.4-5.7) K/uL Lymph # (Auto) (0.6-2.4) K/uL [place] # (Auto) (0.0-0.8) K/uL Eos # (Auto) (0.0-0.7) K/uL Baso # (Auto) (0.0-0.1) K/uL Nucleated RBC % /100WBC Nucleated RBCs # K/uL INR 1.07 Sodium (136-145) mmol/L Potassium (3.5-5.1) mmol/L Chloride (98-107) mmol/L Carbon Dioxide (21.0-32.0) mmol/L BUN (7.0-18.0) mg/dL Creatinine (0.6-1.0) mg/dL Est Cr Clr Drug Dosing mL/min Estimated GFR (MDRD) ml/min Glucose (74-106) mg/dL Calcium (8.5-10.1) mg/dL Iron 10 L (50-175) ug/dL TIBC 269 (250-450) ug/dL % Saturation 3.72 L (20-55) % Ferritin 56 (8-252) ng/mL Total Bilirubin (0.2-1.0) mg/dL AST (15-37) IU/L ALT (14-63) IU/L Alkaline Phosphatase (46-116) U/L Total Protein (6.4-8.2) g/dL Albumin (3.4-5.0) g/dL Globulin (2.0-3.5) g/dL Albumin/Globulin Ratio (1.3-2.8) Blood Type Antibody Screen Crossmatch Result Diagrams: 03/07/18 05:10 03/07/18 05:10 Prasanth Results Last 24 hrs: Microbiology 03/07/18 09:25 Campylobacter Antigen Assay - Final Stool / Feces NEGATIVE CAMPYLOBACTER AG 03/07/18 09:25 Stool Occult Blood (PRASANTH) - Final Stool / Feces NEGATIVE OCCULT BLOOD Consult PN Assessment/Plan Procedures: Procedures CT THORAX W/DYE (02/26/16) HEP B SURFACE ANTIBODY (08/05/15) HPV HIGH-RISK TYPES (01/16/16) HYSTEROSCOPY REMOVE MYOMA (06/10/16) MUMPS ANTIBODY (08/05/15) RUBELLA ANTIBODY (08/05/15) RUBEOLA ANTIBODY (08/05/15) TB TEST CELL IMMUN MEASURE (08/05/15) TISSUE EXAM BY PATHOLOGIST (06/10/16) URINE TEST (06/10/16) VARICELLA-ZOSTER ANTIBODY (08/05/15) Plan: I seen the patient independently of medical office technician. I agree with the findings and assessment as well as plan of care. Patient does have abdominal pain of uncertain etiology and is being followed by DATABASE SECURITY ADMINISTRATOR. The patient had 2 units of packed red blood cells transfused secondary to her microcytic anemia. Please see orders.
--- NOTE | 2018-03-06 22:20 | PCM.CONS ---
H&P History of Present Illness - General Date of Service: 03/06/18 Admit Problem/Dx: Acute onset Right sided abdominal pain Source of Information: Patient History Limitations: Reports: No Limitations - History of Present Illness Initial Comments - Free Text/Narative: 47 yo known to have uterine fibroids presented to the ER last evening with sudden onset right lower quadrant pain associated with nausea and vomiting. Although WBC was elevated, other evaluation for appendicitis was negative. CAT scan and pelvic sonogram showed enlarged uterus with multiple fibroids.Patient denied vaginal bleeding or abnormal vaginal discharge. Her pain has improved with pain meds (she hasn't required pain medications since this afternoon), and her WBC is trending down post IV antibiotics.She was booked hysterectomy in 2017 which she cancelled. She reports that her symptoms of excessive irregular bleeding and pain from the fibroids had reduced following a Lupron injections and a partial hysteroscopic resection of a submucosa fibroid in 2015. Onset of Symptoms: Reports: Sudden Right Lower Abdominal Pain Score (Numeric/FACES): 6 - Related Data Allergies/Adverse Reactions: Allergies Allergy/AdvReac Type Severity Reaction Status Date / Time erythromycin base Allergy Hives Verified 03/05/18 12:57 Penicillins Allergy Hives Verified 03/05/18 12:57 Sulfa (Sulfonamide Allergy Hives Verified 03/05/18 12:57 Antibiotics) Home Medications: Home Meds Amitriptyline [Elavil] 10 mg PO BEDTIME 06/08/16 [History] Gluc/Kieran-Msm#2/C/D3/[place]/Born [Pmwlqbgjvl-Yhfmqhuvrbp-QDZ] 1 tab PO DAILY 06/08 [History] Losartan/Hydrochlorothiazide [Losartan-HCTZ 50-12.5 MG] 1 tab PO DAILY 06/08/16 [History] Ferrous Sulfate [Iron] 1 tab PO DAILY 03/05/18 [History] Labetalol HCl [Labetalol] 100 mg PO BID 03/05/18 [History] Past Medical History HEENT History: Reports: Other (See Below) Other HEENT History: wears glasses Cardiovascular History: Reports: Hypertension Other Cardiovascular History: "murmur as a child" Gastrointestinal History: Reports: Colon Polyp, Other (See Below) Other Gastrointestinal History: occasional heartburn [employer] History: Reports: Fibroids, , Spontaneous Other OB/BYN History: hx of hysteroscopy Musculoskeletal History: Reports: Osteoarthritis Neurological History: Reports: Migraines, TIA Hematologic History: Reports: Anemia - Past Surgical History Head Surgeries/Procedures: Reports: None HEENT Surgical History: Reports: Oral Surgery Cardiovascular Surgical History: Reports: None GI Surgical History: Reports: Polypectomy Female Surgical History: Reports: Breast Biopsy Other Female Surgeries/Procedures: Hystroscopic myomectomy Social & Family History - Family History Family Medical History: Noncontributory - Tobacco Use Smoking Status *Q: Never Smoker - Caffeine Use Caffeine Use: Reports: None - Recreational Drug Use Recreational Drug Use: No H&P Review of Systems - Review of Systems: Review Of Systems: ROS reveals no pertinent complaints other than HPI. Exam - Exam Exam: See Below - Vital Signs Vital Signs: Last Vital Signs Temp 37.2 C 03/06/18 20:00 Pulse 75 03/06/18 20:00 Resp 16 03/06/18 20:00 BP 169/80 H 03/06/18 20:00 Pulse Ox 98 03/06/18 20:00 Weight: 168 lb 8 oz - Exam General: Alert, Oriented GI/Abdominal Exam: Soft, No Mass, Tender (Diffuse lower abdominal area). No: Guarding, Rebound (Female) Exam: Deferred (Declined) Extremities: No Pedal Edema Neuro Extensive - Mental Status: Alert, Oriented x3 - Patient Data Lab Results Last 24 hrs: Laboratory Results - last 24 hr 03/06/18 03/06/18 03/06/18 Range/Units 06:13 06:13 17:57 WBC 15.38 H (4.0-11.0) K/uL RBC 3.86 L (4.30-5.90) M/uL Hgb 8.0 L (12.0-16.0) g/dL Hct 27.5 L (36.0-46.0) % MCV 71.2 L (80.0-98.0) fL MCH 20.7 L (27.0-32.0) pg MCHC 29.1 L (31.0-37.0) g/dL RDW Std Deviation 42.4 (28.0-62.0) fl RDW Coeff of [place] 16 H (11.0-15.0) % Plt Count 249 (150-400) K/uL MPV 10.70 (7.40-12.00) fL Neut % (Auto) 85.9 H (48.0-80.0) % Lymph % (Auto) 7.8 L (16.0-40.0) % [place] % (Auto) 5.7 (0.0-15.0) % Eos % (Auto) 0.4 (0.0-7.0) % Baso % (Auto) 0.2 (0.0-1.5) % Neut # (Auto) 13.2 H (1.4-5.7) K/uL Lymph # (Auto) 1.2 (0.6-2.4) K/uL [place] # (Auto) 0.9 H (0.0-0.8) K/uL Eos # (Auto) 0.1 (0.0-0.7) K/uL Baso # (Auto) 0.0 (0.0-0.1) K/uL Nucleated RBC % 0.0 /100WBC Nucleated RBCs # 0 K/uL Sodium 136 (136-145) mmol/L Potassium 3.4 L (3.5-5.1) mmol/L Chloride 105 (98-107) mmol/L Carbon Dioxide 26.3 (21.0-32.0) mmol/L BUN 7 (7.0-18.0) mg/dL Creatinine 0.7 (0.6-1.0) mg/dL Est Cr Clr Drug Dosing 96.62 mL/min Estimated GFR (MDRD) > 60.0 ml/min Glucose 90 (74-106) mg/dL Calcium 7.9 L (8.5-10.1) mg/dL Total Bilirubin 1.5 H (0.2-1.0) mg/dL AST 10 L (15-37) IU/L ALT 10 L (14-63) IU/L Alkaline Phosphatase 39 L (46-116) U/L Total Protein 6.1 L (6.4-8.2) g/dL Albumin 2.8 L (3.4-5.0) g/dL Globulin 3.3 (2.0-3.5) g/dL Albumin/Globulin Ratio 0.9 L (1.3-2.8) Blood Type A POSITIVE Antibody Screen NEGATIVE Result Diagrams: 03/06/18 06:13 03/06/18 06:13 Consult PN Assessment/Plan Procedures: Procedures CT THORAX W/DYE (02/26/16) HEP B SURFACE ANTIBODY (08/05/15) HPV HIGH-RISK TYPES (01/16/16) HYSTEROSCOPY REMOVE MYOMA (06/10/16) MUMPS ANTIBODY (08/05/15) RUBELLA ANTIBODY (08/05/15) RUBEOLA ANTIBODY (08/05/15) TB TEST CELL IMMUN MEASURE (08/05/15) TISSUE EXAM BY PATHOLOGIST (06/10/16) URINE TEST (06/10/16) VARICELLA-ZOSTER ANTIBODY (08/05/15) (1) Abdominal pain SNOMED Code(s): 38837830 Code(s): R10.9 - UNSPECIFIED ABDOMINAL PAIN Current Visit: Yes Qualifiers: Abdominal location: right lower quadrant Qualified Code(s): R10.31 - Right lower quadrant pain (2) Uterine fibroid SNOMED Code(s): 31672813 Code(s): D25.9 - LEIOMYOMA OF UTERUS, UNSPECIFIED Current Visit: Yes Qualifiers: Uterine leiomyoma location: intramural and submucous Qualified Code(s): D25.1 - Intramural leiomyoma of uterus; D25.0 - Submucous leiomyoma of uterus Problem List Initiated/Reviewed/Updated: Yes Plan: 47 yo lady with lower abdominal pain of unknown etiology. Based on her clincial picture and presentation, red degeneration of uterine fibroids which is a known cause of acute abdominal pain is not a likely diagnosis. Also the pelvic sonogram doesn't show any of the classical findings of degenerating myoma. Patient declined a pelvic examination in the hospital so full assessment of the pelvis was not possible I have discussed management options for myomas with her and she has agreed to follow up in the clinic for further work up/ assessment. We will arrange to see her in the clinic within the next 1-2 weeks. She plans to call to make an appointment as soon as possible. Thank you the consult Requesting Provider: Dr Leon Date Consult Requested: 03/06/18 Reason for Consult: Abdominal pain Patient History Reviewed: Yes Admission H&P Reviewed: Yes Consult Result/Summary:: See note Time Spent (in minutes): 20
[2018-03-07] MEDS: Lactated Ringers 1,000 ML IV SCH (03:48)
[2018-03-07 05:58] LABS: CHLORIDE,CL 105 mmol/L (98-107); SODIUM,NA 139 mmol/L (136-145)
[2018-03-07] MEDS ORDERED: Bisacodyl 10 MG Supp RECTAL ONE (08:16)
--- NOTE | 2018-03-07 09:13 | PCM.SURGPN ---
- General Info Date of Service: 03/07/18 Functional Status: Reports: Pain Controlled - Review of Systems General: Reports: No Symptoms Pulmonary: Reports: No Symptoms Cardiovascular: Reports: No Symptoms Gastrointestinal: Reports: No Symptoms (BM X 1, yellow and brown) - Patient Data Vitals - Most Recent: Last Vital Signs Temp 98.9 F 03/07/18 04:00 Pulse 70 03/07/18 04:00 Resp 18 03/07/18 04:00 BP 100/62 03/07/18 04:00 Pulse Ox 98 03/07/18 04:00 Weight - Most Recent: 167 lb 8.821 oz I&O - Last 24 Hours: Intake & Output 03/06/18 03/07/18 03/07/18 22:59 06:59 14:59 Intake Total 1895 Output Total 1050 1300 Balance -1050 595 Lab Results Last 24 Hrs: Laboratory Results - last 24 hr 03/06/18 03/07/18 03/07/18 Range/Units 17:57 05:10 05:10 WBC 7.78 (4.0-11.0) K/uL RBC 3.75 L (4.30-5.90) M/uL Hgb 7.7 L (12.0-16.0) g/dL Hct 26.7 L (36.0-46.0) % MCV 71.2 L (80.0-98.0) fL MCH 20.5 L (27.0-32.0) pg MCHC 28.8 L (31.0-37.0) g/dL RDW Std Deviation 43.0 (28.0-62.0) fl RDW Coeff of Ryanne 17 H (11.0-15.0) % Plt Count 251 (150-400) K/uL MPV 10.90 (7.40-12.00) fL Neut % (Auto) 66.3 (48.0-80.0) % Lymph % (Auto) 20.6 (16.0-40.0) % Mclean % (Auto) 9.8 (0.0-15.0) % Eos % (Auto) 3.0 (0.0-7.0) % Baso % (Auto) 0.3 (0.0-1.5) % Neut # (Auto) 5.2 (1.4-5.7) K/uL Lymph # (Auto) 1.6 (0.6-2.4) K/uL Mclean # (Auto) 0.8 (0.0-0.8) K/uL Eos # (Auto) 0.2 (0.0-0.7) K/uL Baso # (Auto) 0.0 (0.0-0.1) K/uL Nucleated RBC % 0.0 /100WBC Nucleated RBCs # 0 K/uL Sodium 139 (136-145) mmol/L Potassium 3.5 (3.5-5.1) mmol/L Chloride 105 (98-107) mmol/L Carbon Dioxide 26.3 (21.0-32.0) mmol/L BUN 6 L (7.0-18.0) mg/dL Creatinine 0.7 (0.6-1.0) mg/dL Est Cr Clr Drug Dosing 96.62 mL/min Estimated GFR (MDRD) > 60.0 ml/min Glucose 99 (74-106) mg/dL Calcium 8.4 L (8.5-10.1) mg/dL Iron (50-175) ug/dL TIBC (250-450) ug/dL % Saturation (20-55) % Ferritin (8-252) ng/mL Total Bilirubin 0.7 (0.2-1.0) mg/dL AST 17 (15-37) IU/L ALT 20 (14-63) IU/L Alkaline Phosphatase 40 L (46-116) U/L Total Protein 6.3 L (6.4-8.2) g/dL Albumin 3.0 L (3.4-5.0) g/dL Globulin 3.3 (2.0-3.5) g/dL Albumin/Globulin Ratio 0.9 L (1.3-2.8) Blood Type A POSITIVE Antibody Screen NEGATIVE Crossmatch See Detail 03/07/18 Range/Units 05:10 WBC (4.0-11.0) K/uL RBC (4.30-5.90) M/uL Hgb (12.0-16.0) g/dL Hct (36.0-46.0) % MCV (80.0-98.0) fL MCH (27.0-32.0) pg MCHC (31.0-37.0) g/dL RDW Std Deviation (28.0-62.0) fl RDW Coeff of Ryanne (11.0-15.0) % Plt Count (150-400) K/uL MPV (7.40-12.00) fL Neut % (Auto) (48.0-80.0) % Lymph % (Auto) (16.0-40.0) % Mclean % (Auto) (0.0-15.0) % Eos % (Auto) (0.0-7.0) % Baso % (Auto) (0.0-1.5) % Neut # (Auto) (1.4-5.7) K/uL Lymph # (Auto) (0.6-2.4) K/uL Mclean # (Auto) (0.0-0.8) K/uL Eos # (Auto) (0.0-0.7) K/uL Baso # (Auto) (0.0-0.1) K/uL Nucleated RBC % /100WBC Nucleated RBCs # K/uL Sodium (136-145) mmol/L Potassium (3.5-5.1) mmol/L Chloride (98-107) mmol/L Carbon Dioxide (21.0-32.0) mmol/L BUN (7.0-18.0) mg/dL Creatinine (0.6-1.0) mg/dL Est Cr Clr Drug Dosing mL/min Estimated GFR (MDRD) ml/min Glucose (74-106) mg/dL Calcium (8.5-10.1) mg/dL Iron 10 L (50-175) ug/dL TIBC 269 (250-450) ug/dL % Saturation 3.72 L (20-55) % Ferritin 56 (8-252) ng/mL Total Bilirubin (0.2-1.0) mg/dL AST (15-37) IU/L ALT (14-63) IU/L Alkaline Phosphatase (46-116) U/L Total Protein (6.4-8.2) g/dL Albumin (3.4-5.0) g/dL Globulin (2.0-3.5) g/dL Albumin/Globulin Ratio (1.3-2.8) Blood Type Antibody Screen Crossmatch Med Orders - Current: Current Medications Lactated Ringer's (Ringers, Lactated) 1,000 mls @ 125 mls/hr IV ASDIRECTED [facility] Last Admin: 03/07/18 03:48 Dose: 125 mls/hr Morphine Sulfate (Morphine) 2 mg IVPUSH Q6H PRN PRN Reason: Pain Ondansetron HCl (Zofran) 4 mg IVPUSH Q8H PRN PRN Reason: Nausea/Vomiting Pantoprazole Sodium (Protonix Iv) 40 mg IVPUSH DAILY [facility] Last Admin: 03/06/18 09:24 Dose: 40 mg Tramadol HCl (Ultram) 50 mg PO Q8H PRN PRN Reason: Pain Last Admin: 03/06/18 00:39 Dose: 50 mg Discontinued Medications Bisacodyl (Dulcolax) 10 mg RECTAL ONETIME ONE Stop: 03/07/18 08:17 Sodium Chloride (Normal Saline) 1,000 mls @ 999 mls/hr IV STAT ONE Stop: 03/05/18 14:13 Last Admin: 03/05/18 13:23 Dose: 999 mls/hr Sodium Chloride (Normal Saline) 1,000 mls @ 125 mls/hr IV STAT ONE Stop: 03/06/18 01:25 Last Admin: 03/05/18 17:37 Dose: 125 mls/hr Levofloxacin/Dextrose 750 mg/ (Premix) 150 mls @ 100 mls/hr IV ONETIME ONE Stop: 03/05/18 18:57 Last Admin: 03/05/18 17:38 Dose: 100 mls/hr Iopamidol (Isovue Multipack-370 (76%)) 100 ml IVPUSH ONETIME STA Stop: 03/05/18 18:52 Last Admin: 03/05/18 18:52 Dose: 100 ml Ketorolac Tromethamine (Toradol) 30 mg IVPUSH ONETIME ONE Stop: 03/05/18 13:14 Last Admin: 03/05/18 13:24 Dose: 30 mg Morphine Sulfate (Morphine) 2 mg IVPUSH ONETIME ONE Stop: 03/05/18 13:26 Last Admin: 03/05/18 13:33 Dose: 2 mg Morphine Sulfate (Morphine) 2 mg IVPUSH ONETIME ONE Stop: 03/05/18 13:59 Last Admin: 03/05/18 15:45 Dose: 2 mg Morphine Sulfate (Morphine) 2 mg IVPUSH ONETIME ONE Stop: 03/05/18 17:27 Last Admin: 03/05/18 19:16 Dose: Not Given Ondansetron HCl (Zofran) 4 mg IVPUSH ONETIME ONE Stop: 03/05/18 13:14 Last Admin: 03/05/18 13:24 Dose: 4 mg - Exam GI/Abdominal Exam: Normal Bowel Sounds, Soft (t at RLQ, much improved) - Problem List Review Problem List Initiated/Reviewed/Updated: Yes - My Orders Last 24 Hours: Active Orders 24 hr Category Date Time Status Notify Provider Consults [RC] ASDIRECTED Care 03/06/18 09:05 Active Notify Provider Consults [RC] ASDIRECTED Care 03/06/18 11:35 Active Consult to Physician [CONS] Routine Cons 03/06/18 09:04 Active Consult to Physician [CONS] Routine Cons 03/06/18 11:34 Active Full Liquid Diet [DIET] Diet 03/06/18 Dinner Active Regular Diet [DIET] Diet 03/07/18 Lunch Active CBC WITH AUTO DIFF [HEME] Routine Lab 03/08/18 05:00 Ordered CULTURE STOOL + CAMPY+SHIGATOX [RM] Routine Lab 03/06/18 17:34 Ordered INR,PT,PROTHROMBIN TIME [COAG] Routine Lab 03/07/18 08:47 Ordered OCCULT BLOOD DIAGNOSTIC [OP] Routine Lab 03/06/18 15:33 Ordered RED BLOOD CELLS LP [BBK] Routine Lab 03/07/18 08:12 Results TYPE AND SCREEN [BBK] Routine Lab 03/06/18 17:57 Results URINALYSIS W/MICROSCOPIC [UA W/MICROSCOPIC] [URIN] Lab 03/07/18 08:16 Ordered Routine Pantoprazole [ProTONIX IV] Med 03/06/18 09:00 Active 40 mg IVPUSH DAILY Transfuse Red Blood Cells [COMM] Routine Oth 03/07/18 08:14 Ordered Medication Orders Lactated Ringer's (Ringers, Lactated) 1,000 mls @ 125 mls/hr IV ASDIRECTED [facility] Last Admin: 03/07/18 03:48 Dose: 125 mls/hr Infusion: 03/07/18 03:41 Dose: 125 mls/hr Admin: 03/06/18 19:41 Dose: 125 mls/hr Infusion: 03/06/18 17:25 Dose: 125 mls/hr Admin: 03/06/18 09:25 Dose: 125 mls/hr Infusion: 03/06/18 09:25 Dose: 125 mls/hr Admin: 03/06/18 02:01 Dose: 125 mls/hr Morphine Sulfate (Morphine) 2 mg IVPUSH Q6H PRN PRN Reason: Pain Ondansetron HCl (Zofran) 4 mg IVPUSH Q8H PRN PRN Reason: Nausea/Vomiting Pantoprazole Sodium (Protonix Iv) 40 mg IVPUSH DAILY [facility] Last Admin: 03/06/18 09:24 Dose: 40 mg Tramadol HCl (Ultram) 50 mg PO Q8H PRN PRN Reason: Pain Last Admin: 03/06/18 00:39 Dose: 50 mg - Assessment Assessment (Free Text/Narrative):: pain improved; stool is yellow and brown, no signs or symptoms of gi bleeding; likely from fibroid; denied hematuria/heavy period; very hungry; transfuse 2 RBC for h/h trended down to 7.7; will check h/h q12, start on regular diet; if all doing well, likely home in morning on abx; pt would benefit from colonoscopy 6 - 8 wks; thanks for hedge trimmer inputs, need hedge trimmer visit for her fibroid - Plan Plan (Free Text/Narrative):: pain improved; stool is yellow and brown, no signs or symptoms of gi bleeding; likely from fibroid; denied hematuria/heavy period; very hungry; transfuse 2 RBC for h/h trended down to 7.7; will check h/h q12, start on regular diet; if all doing well, likely home in morning on abx; pt would benefit from colonoscopy 6 - 8 wks; thanks for hedge trimmer inputs, need hedge trimmer visit for her fibroid
--- NOTE | 2018-03-07 09:26 | CT ---
EXAM DATE: 03/05/18 PATIENT'S AGE: 47 Patient: RALPH ZEPEDA Facility: [place], [place] Site . Site : [id number] Study: CT Abdomen/Pelvis [id number]/23/2018 6:50:10 PM Ordering Physician: Doctor Figueroa Final Report: HISTORY: Abdominal pain. TECHNIQUE: Intravenous and oral contrast enhanced CT of the abdomen pelvis. 100 mL of Isovue-370 intravenous contrast was administered. COMPARISON: 03/05/2018. FINDINGS: Minimal focal fatty infiltration within the medial segment of the left hepatic lobe adjacent to the falciform ligament. There is a low-density lesion within the anterior segment of the right hepatic lobe on image #38 of series 201 which could represent a tiny cyst. It is too small to characterize. No biliary ductal dilatation. Gallbladder does not appear excessively distended. The spleen size is within limits. The adrenal glands are normal. No focal pancreatic abnormality or acute peripancreatic inflammatory change. Symmetric nephrograms. No renal mass or hydronephrosis. Urinary bladder is nondistended and not well evaluated by CT. Pelvic calcifications are likely phleboliths. - No small bowel obstruction. No diverticulitis. The uterus is enlarged with multiple uterine masses which likely represent fibroids. There appears to be a pedunculated mass extending into the endometrial region which could relate to a fibroid though endometrial mass or polyp is not excluded. Consider pelvic ultrasound for further evaluation. Small follicles on the right ovary. There are a few mildly prominent retroperitoneal lymph nodes. For example, aortocaval lymph node on image #57 measures 10 mm short axis. Retroperitoneal lymph node anterior to the IVC on image #67 measures 8 mm short axis. Mildly prominent inguinal region lymph nodes may be reactive. There is no abdominal aortic aneurysm. - No acute bony abnormality. - No infiltrate within the lung bases nor pleural effusion. There are bilateral breast implants. IMPRESSION : 1. Markedly enlarged uterus with multiple uterine masses likely represent fibroids. Additionally, there is potentially a pedunculated mass extending into the endometrial region which could relate to a fibroid though a polyp or mass of other etiology is not entirely excluded. Consider ultrasound for further evaluation. 2. A few small mildly prominent retroperitoneal lymph nodes which are nonspecific. 3. No significant free fluid. Dictated by Jean Paul Timur,MD @ 03/05/2018 7:06:58 PM Please note that all CT scans at this facility use dose modulation, iterative reconstruction, and/or weight-based dosing when appropriate to reduce radiation dose to as low as reasonably achievable. Dictated by: Jean Paul Ding MD @ 03/05/2018 19:07:02 ----- ADDENDUM ----- Addendum: The oral contrast material has reached the mid jejunum. There is no evidence of small bowel obstruction. The appendix is subtly seen on the coronal images ( e.g. images #38 through 47 of series 203) and appears normal. There are no surrounding periappendiceal inflammatory changes. No CT findings of acute appendicitis. - Dictated by Jean Paul Ding MD @ Mar 05 2018 7:51PM (Electronic Signature) Report Signed by Proxy. PAPO
[2018-03-07] MEDS: Pantoprazole 40 MG Vial IVPUSH SCH (10:09)
--- NOTE | 2018-03-07 14:30 | PCM.CONSN ---
<Jose Jn Carvajal - Last Filed: 03/07/18 14:31> - General Info Date of Service: 03/07/18 Subjective Update: Virginia Rick is a 47 y/o female who was admitted for possible acute appendicitis. CT abdomen did not show appendicitis. However, patient was complaining of abdominal pain. Today, she states her abdominal pain has improved. She ambulating. Denies any fevers, chest pain, dyspnea, dysuria or blood in stool. No vaginal discharge or bleeding. patient was transfused with 1 unit PRBCs today due to Hg 7.7. - Patient Data Vitals - Most Recent: Last Vital Signs Temp 36.9 C 03/07/18 12:36 Pulse 75 03/07/18 12:36 Resp 17 03/07/18 12:36 BP 182/89 H 03/07/18 12:36 Pulse Ox 98 03/07/18 12:36 Weight - Most Recent: 76 kg I&O - Last 24 Hours: Intake & Output 03/06/18 03/07/18 03/07/18 22:59 06:59 14:59 Intake Total 1895 350 Output Total 1050 1300 Balance -1050 595 350 Lab Results Last 24 Hours: Laboratory Results - last 24 hr 03/06/18 03/07/18 03/07/18 Range/Units 17:57 05:10 05:10 WBC 7.78 (4.0-11.0) K/uL RBC 3.75 L (4.30-5.90) M/uL Hgb 7.7 L (12.0-16.0) g/dL Hct 26.7 L (36.0-46.0) % MCV 71.2 L (80.0-98.0) fL MCH 20.5 L (27.0-32.0) pg MCHC 28.8 L (31.0-37.0) g/dL RDW Std Deviation 43.0 (28.0-62.0) fl RDW Coeff of Ryanne 17 H (11.0-15.0) % Plt Count 251 (150-400) K/uL MPV 10.90 (7.40-12.00) fL Neut % (Auto) 66.3 (48.0-80.0) % Lymph % (Auto) 20.6 (16.0-40.0) % [place] % (Auto) 9.8 (0.0-15.0) % Eos % (Auto) 3.0 (0.0-7.0) % Baso % (Auto) 0.3 (0.0-1.5) % Neut # (Auto) 5.2 (1.4-5.7) K/uL Lymph # (Auto) 1.6 (0.6-2.4) K/uL [place] # (Auto) 0.8 (0.0-0.8) K/uL Eos # (Auto) 0.2 (0.0-0.7) K/uL Baso # (Auto) 0.0 (0.0-0.1) K/uL Nucleated RBC % 0.0 /100WBC Nucleated RBCs # 0 K/uL INR APTT (18.6-31.3) SEC Sodium 139 (136-145) mmol/L Potassium 3.5 (3.5-5.1) mmol/L Chloride 105 (98-107) mmol/L Carbon Dioxide 26.3 (21.0-32.0) mmol/L BUN 6 L (7.0-18.0) mg/dL Creatinine 0.7 (0.6-1.0) mg/dL Est Cr Clr Drug Dosing 96.62 mL/min Estimated GFR (MDRD) > 60.0 ml/min Glucose 99 (74-106) mg/dL Calcium 8.4 L (8.5-10.1) mg/dL Iron (50-175) ug/dL TIBC (250-450) ug/dL % Saturation (20-55) % Ferritin (8-252) ng/mL Total Bilirubin 0.7 (0.2-1.0) mg/dL AST 17 (15-37) IU/L ALT 20 (14-63) IU/L Alkaline Phosphatase 40 L (46-116) U/L Total Protein 6.3 L (6.4-8.2) g/dL Albumin 3.0 L (3.4-5.0) g/dL Globulin 3.3 (2.0-3.5) g/dL Albumin/Globulin Ratio 0.9 L (1.3-2.8) Blood Type A POSITIVE Antibody Screen NEGATIVE Crossmatch See Detail 03/07/18 03/07/18 03/07/18 Range/Units 05:10 09:13 09:13 WBC (4.0-11.0) K/uL RBC (4.30-5.90) M/uL Hgb (12.0-16.0) g/dL Hct (36.0-46.0) % MCV (80.0-98.0) fL MCH (27.0-32.0) pg MCHC (31.0-37.0) g/dL RDW Std Deviation (28.0-62.0) fl RDW Coeff of Ryan[place] (11.0-15.0) % Plt Count (150-400) K/uL MPV (7.40-12.00) fL Neut % (Auto) (48.0-80.0) % Lymph % (Auto) (16.0-40.0) % [place] % (Auto) (0.0-15.0) % Eos % (Auto) (0.0-7.0) % Baso % (Auto) (0.0-1.5) % Neut # (Auto) (1.4-5.7) K/uL Lymph # (Auto) (0.6-2.4) K/uL [place] # (Auto) (0.0-0.8) K/uL Eos # (Auto) (0.0-0.7) K/uL Baso # (Auto) (0.0-0.1) K/uL Nucleated RBC % /100WBC Nucleated RBCs # K/uL INR 1.07 APTT 26.9 (18.6-31.3) SEC Sodium (136-145) mmol/L Potassium (3.5-5.1) mmol/L Chloride (98-107) mmol/L Carbon Dioxide (21.0-32.0) mmol/L BUN (7.0-18.0) mg/dL Creatinine (0.6-1.0) mg/dL Est Cr Clr Drug Dosing mL/min Estimated GFR (MDRD) ml/min Glucose (74-106) mg/dL Calcium (8.5-10.1) mg/dL Iron 10 L (50-175) ug/dL TIBC 269 (250-450) ug/dL % Saturation 3.72 L (20-55) % Ferritin 56 (8-252) ng/mL Total Bilirubin (0.2-1.0) mg/dL AST (15-37) IU/L ALT (14-63) IU/L Alkaline Phosphatase (46-116) U/L Total Protein (6.4-8.2) g/dL Albumin (3.4-5.0) g/dL Globulin (2.0-3.5) g/dL Albumin/Globulin Ratio (1.3-2.8) Blood Type Antibody Screen Crossmatch Prasanth Results Last 24 Hours: Microbiology 03/07/18 09:25 Campylobacter Antigen Assay - Final Stool / Feces NEGATIVE CAMPYLOBACTER AG 03/07/18 09:25 Stool Occult Blood (PRASANTH) - Final Stool / Feces NEGATIVE OCCULT BLOOD Med Orders - Current: Current Medications Lactated Ringer's (Ringers, Lactated) 1,000 mls @ 125 mls/hr IV ASDIRECTED [facility] Last Admin: 03/07/18 03:48 Dose: 125 mls/hr Morphine Sulfate (Morphine) 2 mg IVPUSH Q6H PRN PRN Reason: Pain Ondansetron HCl (Zofran) 4 mg IVPUSH Q8H PRN PRN Reason: Nausea/Vomiting Pantoprazole Sodium (Protonix Iv) 40 mg IVPUSH DAILY [facility] Last Admin: 03/07/18 10:09 Dose: Not Given Tramadol HCl (Ultram) 50 mg PO Q8H PRN PRN Reason: Pain Last Admin: 03/06/18 00:39 Dose: 50 mg Discontinued Medications Bisacodyl (Dulcolax) 10 mg RECTAL ONETIME ONE Stop: 03/07/18 08:17 Last Admin: 03/07/18 10:09 Dose: Not Given Sodium Chloride (Normal Saline) 1,000 mls @ 999 mls/hr IV STAT ONE Stop: 03/05/18 14:13 Last Admin: 03/05/18 13:23 Dose: 999 mls/hr Sodium Chloride (Normal Saline) 1,000 mls @ 125 mls/hr IV STAT ONE Stop: 03/06/18 01:25 Last Admin: 03/05/18 17:37 Dose: 125 mls/hr Levofloxacin/Dextrose 750 mg/ (Premix) 150 mls @ 100 mls/hr IV ONETIME ONE Stop: 03/05/18 18:57 Last Admin: 03/05/18 17:38 Dose: 100 mls/hr Iopamidol (Isovue Multipack-370 (76%)) 100 ml IVPUSH ONETIME STA Stop: 03/05/18 18:52 Last Admin: 03/05/18 18:52 Dose: 100 ml Ketorolac Tromethamine (Toradol) 30 mg IVPUSH ONETIME ONE Stop: 03/05/18 13:14 Last Admin: 03/05/18 13:24 Dose: 30 mg Morphine Sulfate (Morphine) 2 mg IVPUSH ONETIME ONE Stop: 03/05/18 13:26 Last Admin: 03/05/18 13:33 Dose: 2 mg Morphine Sulfate (Morphine) 2 mg IVPUSH ONETIME ONE Stop: 03/05/18 13:59 Last Admin: 03/05/18 15:45 Dose: 2 mg Morphine Sulfate (Morphine) 2 mg IVPUSH ONETIME ONE Stop: 03/05/18 17:27 Last Admin: 03/05/18 19:16 Dose: Not Given Ondansetron HCl (Zofran) 4 mg IVPUSH ONETIME ONE Stop: 03/05/18 13:14 Last Admin: 03/05/18 13:24 Dose: 4 mg - Exam General: Alert, Oriented, Cooperative, No Acute Distress Lungs: Clear to Auscultation, Normal Respiratory Effort. No: Crackles, Wheezing Cardiovascular: Regular Rate, Regular Rhythm, No Murmurs GI/Abdominal Exam: Other (active bowel sounds. non tender on left side, however , mildly tender on right side. No rebound. soft, non distended.) (Female) Exam: Deferred Extremities: Normal Inspection, No Pedal Edema Skin: Warm, Dry Consult PN Assessment/Plan Procedures: Procedures CT THORAX W/DYE (02/26/16) HEP B SURFACE ANTIBODY (08/05/15) HPV HIGH-RISK TYPES (01/16/16) HYSTEROSCOPY REMOVE MYOMA (06/10/16) MUMPS ANTIBODY (08/05/15) RUBELLA ANTIBODY (08/05/15) RUBEOLA ANTIBODY (08/05/15) TB TEST CELL IMMUN MEASURE (08/05/15) TISSUE EXAM BY PATHOLOGIST (06/10/16) URINE TEST (06/10/16) VARICELLA-ZOSTER ANTIBODY (08/05/15) Problem List Initiated/Reviewed/Updated: Yes My Orders Last 24 Hours: My Active Orders 03/06/18 17:57 TYPE AND SCREEN [BBK] Routine 03/07/18 09:25 CULTURE STOOL + CAMPY+SHIGATOX [RM] Routine Plan: 1. Abdominal pain, improved. Uncertain etiology. stool hemmocult test negative. I suspect that this could have been an acute episode of gastroenteritis vs ruptured ovarian cyst. 2. Iron deficiency anemia s/p blood transfusion- Agree with checking Hg Q12H. Ordered Iron supplementation. Will need to follow-up with PCP for referral to hematology. 3. Hypertension. Started lisinopril 10 mg PO daily. Will need to follow-up as outpatient with PCP. 4. Hypokalemia. Replaced with KCl 40 mEq PO once. 5. Leukocytosis, resolved. <Christopher Damon - Last Filed: 03/07/18 16:59> - General Info Admission Dx/Problem (Free Text): Internal medicine has been consulted to help manage the patient's medical problems while inpatient. I have evaluated the patient independently of medical device sales representative. The patient is doing better. She has been ambulating. I agree with the findings and assessment as well as a plan of care by the medical device sales representative. The patient had undergone blood transfusion secondary to microcytic anemia. Please see orders. - Patient Data Vitals - Most Recent: Last Vital Signs Temp 36.9 C 03/07/18 15:50 Pulse 67 03/07/18 15:50 Resp 16 03/07/18 15:50 BP 179/100 H 03/07/18 15:50 Pulse Ox 98 03/07/18 15:50 I&O - Last 24 Hours: Intake & Output 03/07/18 03/07/18 03/07/18 06:59 14:59 22:59 Intake Total 9335 109 8144 Output Total 1300 1950 Balance 595 350 -900 Lab Results Last 24 Hours: Laboratory Results - last 24 hr 03/06/18 03/07/18 03/07/18 Range/Units 17:57 05:10 05:10 WBC 7.78 (4.0-11.0) K/uL RBC 3.75 L (4.30-5.90) M/uL Hgb 7.7 L (12.0-16.0) g/dL Hct 26.7 L (36.0-46.0) % MCV 71.2 L (80.0-98.0) fL MCH 20.5 L (27.0-32.0) pg MCHC 28.8 L (31.0-37.0) g/dL RDW Std Deviation 43.0 (28.0-62.0) fl RDW Coeff of Ryanne 17 H (11.0-15.0) % Plt Count 251 (150-400) K/uL MPV 10.90 (7.40-12.00) fL Neut % (Auto) 66.3 (48.0-80.0) % Lymph % (Auto) 20.6 (16.0-40.0) % [place] % (Auto) 9.8 (0.0-15.0) % Eos % (Auto) 3.0 (0.0-7.0) % Baso % (Auto) 0.3 (0.0-1.5) % Neut # (Auto) 5.2 (1.4-5.7) K/uL Lymph # (Auto) 1.6 (0.6-2.4) K/uL [place] # (Auto) 0.8 (0.0-0.8) K/uL Eos # (Auto) 0.2 (0.0-0.7) K/uL Baso # (Auto) 0.0 (0.0-0.1) K/uL Nucleated RBC % 0.0 /100WBC Nucleated RBCs # 0 K/uL INR APTT (18.6-31.3) SEC Sodium 139 (136-145) mmol/L Potassium 3.5 (3.5-5.1) mmol/L Chloride 105 (98-107) mmol/L Carbon Dioxide 26.3 (21.0-32.0) mmol/L BUN 6 L (7.0-18.0) mg/dL Creatinine 0.7 (0.6-1.0) mg/dL Est Cr Clr Drug Dosing 96.62 mL/min Estimated GFR (MDRD) > 60.0 ml/min Glucose 99 (74-106) mg/dL Calcium 8.4 L (8.5-10.1) mg/dL Iron (50-175) ug/dL TIBC (250-450) ug/dL % Saturation (20-55) % Ferritin (8-252) ng/mL Total Bilirubin 0.7 (0.2-1.0) mg/dL AST 17 (15-37) IU/L ALT 20 (14-63) IU/L Alkaline Phosphatase 40 L (46-116) U/L Total Protein 6.3 L (6.4-8.2) g/dL Albumin 3.0 L (3.4-5.0) g/dL Globulin 3.3 (2.0-3.5) g/dL Albumin/Globulin Ratio 0.9 L (1.3-2.8) Urine Color Urine Appearance Urine pH (5.0-8.0) Ur Specific [place] (1.001-1.035) Urine Protein (NEGATIVE) mg/dL Urine Glucose (UA) (NEGATIVE) mg/dL Urine Ketones (NEGATIVE) mg/dL Urine Occult Blood (NEGATIVE) Urine Nitrite (NEGATIVE) Urine Bilirubin (NEGATIVE) Urine Urobilinogen (<2.0) EU/dL Ur Leukocyte Esterase (NEGATIVE) Urine RBC (0-2/HPF) Urine WBC (0-5/HPF) Ur Epithelial Cells (NONE-FEW) Urine Bacteria (NEGATIVE) Blood Type A POSITIVE Antibody Screen NEGATIVE Crossmatch See Detail 03/07/18 03/07/18 03/07/18 Range/Units 05:10 09:13 09:13 WBC (4.0-11.0) K/uL RBC (4.30-5.90) M/uL Hgb (12.0-16.0) g/dL Hct (36.0-46.0) % MCV (80.0-98.0) fL MCH (27.0-32.0) pg MCHC (31.0-37.0) g/dL RDW Std Deviation (28.0-62.0) fl RDW Coeff of Ryanne (11.0-15.0) % Plt Count (150-400) K/uL MPV (7.40-12.00) fL Neut % (Auto) (48.0-80.0) % Lymph % (Auto) (16.0-40.0) % [place] % (Auto) (0.0-15.0) % Eos % (Auto) (0.0-7.0) % Baso % (Auto) (0.0-1.5) % Neut # (Auto) (1.4-5.7) K/uL Lymph # (Auto) (0.6-2.4) K/uL [place] # (Auto) (0.0-0.8) K/uL Eos # (Auto) (0.0-0.7) K/uL Baso # (Auto) (0.0-0.1) K/uL Nucleated RBC % /100WBC Nucleated RBCs # K/uL INR 1.07 APTT 26.9 (18.6-31.3) SEC Sodium (136-145) mmol/L Potassium (3.5-5.1) mmol/L Chloride (98-107) mmol/L Carbon Dioxide (21.0-32.0) mmol/L BUN (7.0-18.0) mg/dL Creatinine (0.6-1.0) mg/dL Est Cr Clr Drug Dosing mL/min Estimated GFR (MDRD) ml/min Glucose (74-106) mg/dL Calcium (8.5-10.1) mg/dL Iron 10 L (50-175) ug/dL TIBC 269 (250-450) ug/dL % Saturation 3.72 L (20-55) % Ferritin 56 (8-252) ng/mL Total Bilirubin (0.2-1.0) mg/dL AST (15-37) IU/L ALT (14-63) IU/L Alkaline Phosphatase (46-116) U/L Total Protein (6.4-8.2) g/dL Albumin (3.4-5.0) g/dL Globulin (2.0-3.5) g/dL Albumin/Globulin Ratio (1.3-2.8) Urine Color Urine Appearance Urine pH (5.0-8.0) Ur Specific [place] (1.001-1.035) Urine Protein (NEGATIVE) mg/dL Urine Glucose (UA) (NEGATIVE) mg/dL Urine Ketones (NEGATIVE) mg/dL Urine Occult Blood (NEGATIVE) Urine Nitrite (NEGATIVE) Urine Bilirubin (NEGATIVE) Urine Urobilinogen (<2.0) EU/dL Ur Leukocyte Esterase (NEGATIVE) Urine RBC (0-2/HPF) Urine WBC (0-5/HPF) Ur Epithelial Cells (NONE-FEW) Urine Bacteria (NEGATIVE) Blood Type Antibody Screen Crossmatch 09/25/18 Range/Units 14:30 WBC (4.0-11.0) K/uL RBC (4.30-5.90) M/uL Hgb (12.0-16.0) g/dL Hct (36.0-46.0) % MCV (80.0-98.0) fL MCH (27.0-32.0) pg MCHC (31.0-37.0) g/dL RDW Std Deviation (28.0-62.0) fl RDW Coeff of Ryanne (11.0-15.0) % Plt Count (150-400) K/uL MPV (7.40-12.00) fL Neut % (Auto) (48.0-80.0) % Lymph % (Auto) (16.0-40.0) % [place] % (Auto) (0.0-15.0) % Eos % (Auto) (0.0-7.0) % Baso % (Auto) (0.0-1.5) % Neut # (Auto) (1.4-5.7) K/uL Lymph # (Auto) (0.6-2.4) K/uL [place] # (Auto) (0.0-0.8) K/uL Eos # (Auto) (0.0-0.7) K/uL Baso # (Auto) (0.0-0.1) K/uL Nucleated RBC % /100WBC Nucleated RBCs # K/uL INR APTT (18.6-31.3) SEC Sodium (136-145) mmol/L Potassium (3.5-5.1) mmol/L Chloride (98-107) mmol/L Carbon Dioxide (21.0-32.0) mmol/L BUN (7.0-18.0) mg/dL Creatinine (0.6-1.0) mg/dL Est Cr Clr Drug Dosing mL/min Estimated GFR (MDRD) ml/min Glucose (74-106) mg/dL Calcium (8.5-10.1) mg/dL Iron (50-175) ug/dL TIBC (250-450) ug/dL % Saturation (20-55) % Ferritin (8-252) ng/mL Total Bilirubin (0.2-1.0) mg/dL AST (15-37) IU/L ALT (14-63) IU/L Alkaline Phosphatase (46-116) U/L Total Protein (6.4-8.2) g/dL Albumin (3.4-5.0) g/dL Globulin (2.0-3.5) g/dL Albumin/Globulin Ratio (1.3-2.8) Urine Color YELLOW Urine Appearance SLT CLOUDY Urine pH 7.5 (5.0-8.0) Ur Specific [place] 1.015 (1.001-1.035) Urine Protein NEGATIVE (NEGATIVE) mg/dL Urine Glucose (UA) NEGATIVE (NEGATIVE) mg/dL Urine Ketones NEGATIVE (NEGATIVE) mg/dL Urine Occult Blood NEGATIVE (NEGATIVE) Urine Nitrite NEGATIVE (NEGATIVE) Urine Bilirubin NEGATIVE (NEGATIVE) Urine Urobilinogen 1.0 (<2.0) EU/dL Ur Leukocyte Esterase NEGATIVE (NEGATIVE) Urine RBC 0-1 (0-2/HPF) Urine WBC 1-3 (0-5/HPF) Ur Epithelial Cells MANY (NONE-FEW) Urine Bacteria FEW (NEGATIVE) Blood Type Antibody Screen Crossmatch Prasanth Results Last 24 Hours: Microbiology 03/07/18 09:25 Campylobacter Antigen Assay - Final Stool / Feces NEGATIVE CAMPYLOBACTER AG 03/07/18 09:25 Stool Occult Blood (PRASANTH) - Final Stool / Feces NEGATIVE OCCULT BLOOD Med Orders - Current: Current Medications Amitriptyline HCl (Elavil) 10 mg PO BEDTIME [facility] Ferrous Sulfate (Ferrous Sulfate) 325 mg PO DAILY [facility] HCTZ/Losartan Potassium (Hyzaar 50-12.5 Mg) 1 tab PO DAILY [facility] Last Admin: 03/07/18 16:57 Dose: 1 tab Lactated Ringer's (Ringers, Lactated) 1,000 mls @ 125 mls/hr IV ASDIRECTED [facility] Last Admin: 03/07/18 03:48 Dose: 125 mls/hr Labetalol HCl (Normodyne) 100 mg PO BID [facility] Morphine Sulfate (Morphine) 2 mg IVPUSH Q6H PRN PRN Reason: Pain Ondansetron HCl (Zofran) 4 mg IVPUSH Q8H PRN PRN Reason: Nausea/Vomiting Pantoprazole Sodium (Protonix Iv) 40 mg IVPUSH DAILY [facility] Last Admin: 03/07/18 10:09 Dose: Not Given Tramadol HCl (Ultram) 50 mg PO Q8H PRN PRN Reason: Pain Last Admin: 03/07/18 14:54 Dose: 50 mg Discontinued Medications Bisacodyl (Dulcolax) 10 mg RECTAL ONETIME ONE Stop: 03/07/18 08:17 Last Admin: 03/07/18 10:09 Dose: Not Given HCTZ/Losartan Potassium (Hyzaar 50-12.5 Mg) 1 tab PO DAILY [facility] Sodium Chloride (Normal Saline) 1,000 mls @ 999 mls/hr IV STAT ONE Stop: 03/05/18 14:13 Last Admin: 03/05/18 13:23 Dose: 999 mls/hr Sodium Chloride (Normal Saline) 1,000 mls @ 125 mls/hr IV STAT ONE Stop: 03/06/18 01:25 Last Admin: 03/05/18 17:37 Dose: 125 mls/hr Levofloxacin/Dextrose 750 mg/ (Premix) 150 mls @ 100 mls/hr IV ONETIME ONE Stop: 03/05/18 18:57 Last Admin: 03/05/18 17:38 Dose: 100 mls/hr Iopamidol (Isovue Multipack-370 (76%)) 100 ml IVPUSH ONETIME STA Stop: 03/05/18 18:52 Last Admin: 03/05/18 18:52 Dose: 100 ml Ketorolac Tromethamine (Toradol) 30 mg IVPUSH ONETIME ONE Stop: 03/05/18 13:14 Last Admin: 03/05/18 13:24 Dose: 30 mg Labetalol HCl (Normodyne) 100 mg PO BID [facility] Lisinopril (Prinivil) 10 mg PO DAILY [facility] Last Admin: 03/07/18 14:50 Dose: 10 mg Morphine Sulfate (Morphine) 2 mg IVPUSH ONETIME ONE Stop: 03/05/18 13:26 Last Admin: 03/05/18 13:33 Dose: 2 mg Morphine Sulfate (Morphine) 2 mg IVPUSH ONETIME ONE Stop: 03/05/18 13:59 Last Admin: 03/05/18 15:45 Dose: 2 mg Morphine Sulfate (Morphine) 2 mg IVPUSH ONETIME ONE Stop: 03/05/18 17:27 Last Admin: 03/05/18 19:16 Dose: Not Given Ondansetron HCl (Zofran) 4 mg IVPUSH ONETIME ONE Stop: 03/05/18 13:14 Last Admin: 03/05/18 13:24 Dose: 4 mg Polysaccharide Iron Complex (Ferrex 150) 150 mg PO BID [facility] Last Admin: 03/07/18 14:50 Dose: 150 mg Consult PN Assessment/Plan Procedures: Procedures CT THORAX W/DYE (02/26/16) HEP B SURFACE ANTIBODY (08/05/15) HPV HIGH-RISK TYPES (01/16/16) HYSTEROSCOPY REMOVE MYOMA (06/10/16) MUMPS ANTIBODY (08/05/15) RUBELLA ANTIBODY (08/05/15) RUBEOLA ANTIBODY (08/05/15) TB TEST CELL IMMUN MEASURE (08/05/15) TISSUE EXAM BY PATHOLOGIST (06/10/16) URINE TEST (06/10/16) VARICELLA-ZOSTER ANTIBODY (08/05/15)
[2018-03-07] MEDS ORDERED: Iron Polysaccharides Complex 150 MG Cap PO SCH (14:45)
[2018-03-07] MEDS ORDERED: Lisinopril 10 MG Tab PO SCH (14:45)
[2018-03-07] MEDS: traMADol 50 MG Tab PO PRN (14:54)
[2018-03-07] MEDS ORDERED: Hydrochlorothiazide/Losartan 12.5-50 mg Tab PO SCH (16:15)
[2018-03-07] MEDS: Hydrochlorothiazide/Losartan 12.5-50 mg Tab PO SCH (16:57)
[2018-03-07] MEDS ORDERED: hydrALAZINE 25 MG Tab PO PRN (19:15)
[2018-03-07] MEDS: Labetalol 100 MG Tab PO SCH (20:30)
[2018-03-07] MEDS ORDERED: Labetalol 100 MG Tab PO SCH (21:00)
[2018-03-07] MEDS ORDERED: Amitriptyline 10 MG Tab PO SCH (21:00)
[2018-03-07] MEDS ORDERED: traMADol 50 MG Tab PO ONE (21:13)
[2018-03-08] MEDS ORDERED: Ferrous Sulfate 325 MG Tab PO SCH (09:00)
--- NOTE | 2018-03-08 09:14 | PCM.DCSUM1 ---
Discharge Summary - Hospital Course Brief History: admitted via ED for RLQ abd pain, see admitting h/p for details Diagnosis: Stroke: No - Discharge Data Discharge Date: 03/08/18 Discharge Disposition: Home, Self-Care 01 Condition: Good - Patient Summary/Data Consults: cxs to word processing supervisor Dr. Whitman, and hosp Dr. chávez Consultations 03/05/18 17:22 Consult to Physician [CONS] Stat 03/06/18 09:04 Consult to Physician [CONS] Routine 03/06/18 11:34 Consult to Physician [CONS] Routine Recommended Follow-up Testing/Procedures: fu w word processing supervisor 1 wk fibroid fu w primary care 1 wk for htn fu w me 4 - 6 wks for poss colonoscopy Hospital Course: pt admitted for rlq pain; 2 cts did not show any signs of appendicitis; instead , showed uterine with recurrent fibroid and pedunculated mass; and at the same time, pt also has HTN problem; pain managed expectedly, and leukocytosis resolved, and word processing supervisor and hosp consulted; and pt's h/h trended down, ua, no blood, BM, no blood; pt got 2 RBC transfused; felt good, and h/h stable, and now discharge home on ultram, word processing supervisor and hosp fu 1 wk, and 4 -6 wks w me for colonoscopy - Patient Instructions Diet: Regular Diet as Tolerated Activity: No Strenuous Activities Driving: May Drive Today Showering/Bathing: May Shower Notify Provider of: Fever, Nausea and/or Vomiting - Discharge Plan Home Medications: Home Meds Amitriptyline [Elavil] 10 mg PO BEDTIME 06/08/16 [History] Gluc/Kieran-Msm#2/C/D3/[place]ville/Born [Ltngcylonw-Lujdlzzfpge-ZWG] 1 tab PO DAILY 06/08 [History] Losartan/Hydrochlorothiazide [Losartan-HCTZ 50-12.5 MG] 1 tab PO DAILY 06/08/16 [History] Ferrous Sulfate [Iron] 1 tab PO DAILY 03/05/18 [History] Labetalol HCl [Labetalol] 100 mg PO BID 03/05/18 [History] Patient Handouts: Abdominal Pain, Adult, Tramadol tablets Referrals: Livia Whitman MD [Physician] - Nain Leon MD [Physician] - (Follow-up in 4-6weeks ,for colonoscopy.) Augusto Witt MD [Primary Care Provider] - - Discharge Summary/Plan Comment DC Time >30 min.: Yes - Patient Data Vitals - Most Recent: Last Vital Signs Temp 97.9 F 03/08/18 04:00 Pulse 64 03/08/18 04:00 Resp 18 03/08/18 04:00 BP 155/102 H 03/08/18 04:00 Pulse Ox 99 03/08/18 04:00 Weight - Most Recent: 167 lb 8.821 oz I&O - Last 24 hours: Intake & Output 03/07/18 03/08/18 03/08/18 22:59 06:59 14:59 Intake Total 1050 650 Output Total 1950 1500 Balance -900 -850 Lab Results - Last 24 hrs: Laboratory Results - last 24 hr 03/06/18 03/07/18 03/07/18 Range/Units 17:57 09:13 09:13 WBC (4.0-11.0) K/uL RBC (4.30-5.90) M/uL Hgb (12.0-16.0) g/dL Hct (36.0-46.0) % MCV (80.0-98.0) fL MCH (27.0-32.0) pg MCHC (31.0-37.0) g/dL RDW Std Deviation (28.0-62.0) fl RDW Coeff of Ryanne (11.0-15.0) % Plt Count (150-400) K/uL MPV (7.40-12.00) fL Neut % (Auto) (48.0-80.0) % Lymph % (Auto) (16.0-40.0) % [place] % (Auto) (0.0-15.0) % Eos % (Auto) (0.0-7.0) % Baso % (Auto) (0.0-1.5) % Neut # (Auto) (1.4-5.7) K/uL Lymph # (Auto) (0.6-2.4) K/uL [place] # (Auto) (0.0-0.8) K/uL Eos # (Auto) (0.0-0.7) K/uL Baso # (Auto) (0.0-0.1) K/uL Nucleated RBC % /100WBC Nucleated RBCs # K/uL INR 1.07 APTT 26.9 (18.6-31.3) SEC Urine Color Urine Appearance Urine pH (5.0-8.0) Ur Specific [place] (1.001-1.035) Urine Protein (NEGATIVE) mg/dL Urine Glucose (UA) (NEGATIVE) mg/dL Urine Ketones (NEGATIVE) mg/dL Urine Occult Blood (NEGATIVE) Urine Nitrite (NEGATIVE) Urine Bilirubin (NEGATIVE) Urine Urobilinogen (<2.0) EU/dL Ur Leukocyte Esterase (NEGATIVE) Urine RBC (0-2/HPF) Urine WBC (0-5/HPF) Ur Epithelial Cells (NONE-FEW) Urine Bacteria (NEGATIVE) Blood Type A POSITIVE Antibody Screen NEGATIVE Crossmatch See Detail 03/07/18 03/07/18 03/08/18 Range/Units 14:30 21:00 05:20 WBC 9.25 (4.0-11.0) K/uL RBC 4.49 (4.30-5.90) M/uL Hgb 10.2 L 10.2 L (12.0-16.0) g/dL Hct 32.7 L 32.5 L (36.0-46.0) % MCV 72.4 L (80.0-98.0) fL MCH 22.7 L (27.0-32.0) pg MCHC 31.4 (31.0-37.0) g/dL RDW Std Deviation 44.3 (28.0-62.0) fl RDW Coeff of Ryanne 17 H (11.0-15.0) % Plt Count 248 (150-400) K/uL MPV 11.40 (7.40-12.00) fL Neut % (Auto) 60.9 (48.0-80.0) % Lymph % (Auto) 28.0 (16.0-40.0) % [place] % (Auto) 6.9 (0.0-15.0) % Eos % (Auto) 3.9 (0.0-7.0) % Baso % (Auto) 0.3 (0.0-1.5) % Neut # (Auto) 5.6 (1.4-5.7) K/uL Lymph # (Auto) 2.6 H (0.6-2.4) K/uL [place] # (Auto) 0.6 (0.0-0.8) K/uL Eos # (Auto) 0.4 (0.0-0.7) K/uL Baso # (Auto) 0.0 (0.0-0.1) K/uL Nucleated RBC % 0.0 /100WBC Nucleated RBCs # 0 K/uL INR APTT (18.6-31.3) SEC Urine Color YELLOW Urine Appearance SLT CLOUDY Urine pH 7.5 (5.0-8.0) Ur Specific [place] 1.015 (1.001-1.035) Urine Protein NEGATIVE (NEGATIVE) mg/dL Urine Glucose (UA) NEGATIVE (NEGATIVE) mg/dL Urine Ketones NEGATIVE (NEGATIVE) mg/dL Urine Occult Blood NEGATIVE (NEGATIVE) Urine Nitrite NEGATIVE (NEGATIVE) Urine Bilirubin NEGATIVE (NEGATIVE) Urine Urobilinogen 1.0 (<2.0) EU/dL Ur Leukocyte Esterase NEGATIVE (NEGATIVE) Urine RBC 0-1 (0-2/HPF) Urine WBC 1-3 (0-5/HPF) Ur Epithelial Cells MANY (NONE-FEW) Urine Bacteria FEW (NEGATIVE) Blood Type Antibody Screen Crossmatch KIM Results - Last 24 hrs: Microbiology 03/07/18 09:25 Campylobacter Antigen Assay - Final Stool / Feces NEGATIVE CAMPYLOBACTER AG 03/07/18 09:25 Stool Occult Blood (KIM) - Final Stool / Feces NEGATIVE OCCULT BLOOD Med Orders - Current: Current Medications Amitriptyline HCl (Elavil) 10 mg PO BEDTIME [facility] Last Admin: 03/07/18 20:29 Dose: 10 mg Ferrous Sulfate (Ferrous Sulfate) 325 mg PO DAILY [facility] HCTZ/Losartan Potassium (Hyzaar 50-12.5 Mg) 1 tab PO DAILY [facility] Last Admin: 03/07/18 16:57 Dose: 1 tab Hydralazine HCl (Apresoline) 25 mg PO TID PRN PRN Reason: Hypertension Last Admin: 03/07/18 19:26 Dose: 25 mg Labetalol HCl (Normodyne) 100 mg PO BID [facility] Last Admin: 03/07/18 20:30 Dose: 100 mg Morphine Sulfate (Morphine) 2 mg IVPUSH Q6H PRN PRN Reason: Pain Ondansetron HCl (Zofran) 4 mg IVPUSH Q8H PRN PRN Reason: Nausea/Vomiting Pantoprazole Sodium (Protonix Iv) 40 mg IVPUSH DAILY [facility] Last Admin: 03/07/18 10:09 Dose: Not Given Tramadol HCl (Ultram) 50 mg PO Q8H PRN PRN Reason: Pain Last Admin: 03/07/18 14:54 Dose: 50 mg Discontinued Medications Bisacodyl (Dulcolax) 10 mg RECTAL ONETIME ONE Stop: 03/07/18 08:17 Last Admin: 03/07/18 10:09 Dose: Not Given HCTZ/Losartan Potassium (Hyzaar 50-12.5 Mg) 1 tab PO DAILY [facility] Last Admin: 03/07/18 17:22 Dose: Not Given Sodium Chloride (Normal Saline) 1,000 mls @ 999 mls/hr IV STAT ONE Stop: 03/05/18 14:13 Last Admin: 03/05/18 13:23 Dose: 999 mls/hr Sodium Chloride (Normal Saline) 1,000 mls @ 125 mls/hr IV STAT ONE Stop: 03/06/18 01:25 Last Admin: 03/05/18 17:37 Dose: 125 mls/hr Levofloxacin/Dextrose 750 mg/ (Premix) 150 mls @ 100 mls/hr IV ONETIME ONE Stop: 03/05/18 18:57 Last Admin: 03/05/18 17:38 Dose: 100 mls/hr Lactated Ringer's (Ringers, Lactated) 1,000 mls @ 125 mls/hr IV ASDIRECTED [facility] Last Admin: 03/07/18 03:48 Dose: 125 mls/hr Iopamidol (Isovue Multipack-370 (76%)) 100 ml IVPUSH ONETIME STA Stop: 03/05/18 18:52 Last Admin: 03/05/18 18:52 Dose: 100 ml Ketorolac Tromethamine (Toradol) 30 mg IVPUSH ONETIME ONE Stop: 03/05/18 13:14 Last Admin: 03/05/18 13:24 Dose: 30 mg Labetalol HCl (Normodyne) 100 mg PO BID [facility] Lisinopril (Prinivil) 10 mg PO DAILY [facility] Last Admin: 03/07/18 14:50 Dose: 10 mg Morphine Sulfate (Morphine) 2 mg IVPUSH ONETIME ONE Stop: 03/05/18 13:26 Last Admin: 03/05/18 13:33 Dose: 2 mg Morphine Sulfate (Morphine) 2 mg IVPUSH ONETIME ONE Stop: 03/05/18 13:59 Last Admin: 03/05/18 15:45 Dose: 2 mg Morphine Sulfate (Morphine) 2 mg IVPUSH ONETIME ONE Stop: 03/05/18 17:27 Last Admin: 03/05/18 19:16 Dose: Not Given Ondansetron HCl (Zofran) 4 mg IVPUSH ONETIME ONE Stop: 03/05/18 13:14 Last Admin: 03/05/18 13:24 Dose: 4 mg Polysaccharide Iron Complex (Ferrex 150) 150 mg PO BID CARIN Last Admin: 03/07/18 14:50 Dose: 150 mg Tramadol HCl (Ultram) 50 mg PO ONETIME ONE Stop: 03/07/18 21:14 Last Admin: 03/07/18 21:21 Dose: 50 mg
[2018-03-08] MEDS: Pantoprazole 40 MG Vial IVPUSH SCH (09:31)
[2018-03-08] MEDS: Hydrochlorothiazide/Losartan 12.5-50 mg Tab PO SCH (09:32)
[2018-03-08] MEDS: Labetalol 100 MG Tab PO SCH (09:32)
[2018-03-08 11:17] VITALS: BP 175/86
== END 2018-03-08 11:45 | disposition home or self-care (01) ==
LOC: MW.ED 12:39 → MW.MS 17:56
PROVIDERS: ADMIT Surgery; ATTEND Surgery
DX: R10.31 Right lower quadrant pain (principal); D25.1 Intramural leiomyoma of uterus; D50.9 Iron deficiency anemia, unspecified; E87.6 Hypokalemia; D72.829 Elevated white blood cell count, unspecified; I10 Essential (primary) hypertension; Z79.899 Other long term (current) drug therapy; Z88.0 Allergy status to penicillin; Z88.1 Allergy status to other antibiotic agents; Z88.2 Allergy status to sulfonamides
CPT/HCPCS: 36415; 36430; 74176; 74177; 76856; 80053; 81001; 81025; 82272; 82728; 83550; 85014; 85018; 85025; 85610; 85730; 86850; 86900; 86901; 86920; 86921; 86922; 87046; 87899; 96361; 96365; 96375; 96376; 99285; A9270; C9113; G0378; J1885; J1956; J2270; J2405; J7040; J7120; P9016; Q9967; 99284

== ENCOUNTER 2018-03-17 04:13 | Observation (INO) | payer OTHER ==
[2018-03-17] MEDS ORDERED: Sodium Chloride 0.9% 2.5 ML Syringe FLUSH PRN ×2 (05:04)
[2018-03-17] MEDS ORDERED: Aspirin 81 MG Tab.Chew PO ONE (05:04)
[2018-03-17] MEDS ORDERED: Sodium Chloride 0.9% 10 ML Syringe FLUSH PRN (05:04)
[2018-03-17] MEDS ORDERED: Sodium Chloride 0.9% 1,000 ML IV ONE (05:04)
[2018-03-17] MEDS ORDERED: hydrALAZINE 20 MG/ML SDV IVPUSH ONE (05:12)
--- NOTE | 2018-03-17 05:12 | EDM.PDOC ---
ED HPI GENERAL MEDICAL PROBLEM - General Chief Complaint: General Stated Complaint: BLOOD PRESSURE Time Seen by Provider: 03/17/18 04:29 Source of Information: Reports: Patient History Limitations: Reports: No Limitations - History of Present Illness INITIAL COMMENTS - FREE TEXT/NARRATIVE: HISTORY AND PHYSICAL: History of present illness: 47-year-old female presenting to emergency department with chief complaint of high blood pressure and headache. Patient states that last night she began to have a headache. This seemed to improve somewhat however she was not feeling well throughout the day. Then around 3:30 AM her headache became worse and she became nauseous so came to the emergency room for further evaluation. She does have a history of hypertension and states that she has had problems recently with blood pressure control. States that she had been getting systolics in this 140s however this past weekend her blood pressure has increased. She currently sees Dr. Witt for this. She was recently switched on medications to labetalol and hydralazine from losartan/HCTZ and hydralazine. This occurred during a recent hospitalization in which she was hospitalized secondary to abdominal pain and found to have a ovarian cyst. During the hospitalization 03/05-03/08 she had difficulty with her blood pressure as well. Currently patient states that she is having some left sternal pain without radiation. She's had some associated nausea. Pain is sharp and lasted for about 2 minutes. Currently it is dull. She does have a headache. She denies any associated shortness of breath or diaphoresis. She has never had an DC but states that she did have a TIA in 2001. That's when her initial hypertension was discovered. Intial blood pressure 210/129 Review of systems: As per history of present illness and below otherwise all systems reviewed and negative. Past medical history: As per history of present illness and as reviewed below otherwise noncontributory. Surgical history: As per history of present illness and as reviewed below otherwise noncontributory. Social history: No reported history of drug or alcohol abuse. Family history: As per history of present illness and as reviewed below otherwise noncontributory. Physical exam: HEENT: Atraumatic, normocephalic, pupils reactive, negative for conjunctival pallor or scleral icterus, mucous membranes moist, throat clear, neck supple, nontender, trachea midline. Lungs: Clear to auscultation, breath sounds equal bilaterally, chest nontender. Heart: S1S2, regular, negative for clicks, rubs, or JVD. Abdomen: Soft, nondistended, nontender. Negative for masses or hepatosplenomegaly. Negative for costovertebral tenderness. Pelvis: Stable nontender. Genitourinary: Deferred. Rectal: Deferred. Extremities: Atraumatic, negative for cords or calf pain. Neurovascular unremarkable. Neuro: Awake, alert, oriented. Cranial nerves II through XII unremarkable. Cerebellum unremarkable. Motor and sensory unremarkable throughout. Exam nonfocal. Diagnostics: CBC, CMP, troponin, INR, EKG, chest x-ray, TSH Therapeutics: 1 L normal saline, captopril 25 mg by mouth 1 Impression: Hypertensive emergency Atypical chest pain Plan: Initial troponin was negative and patient's chest pain was relieved after blood pressure improved. Blood pressure did improve into the 160 systolic after 25 mg captopril 1. CBC, CMP, troponin, INR, and EKG were unremarkable. Secondary the patient's symptoms secondary hypertensive emergency. I did call Dr. Torres, hospitalist, who agreed for admission observation. Definitive disposition and diagnosis as appropriate pending reevaluation and review of above. headache Pain Score (Numeric/FACES): 8 - Related Data Allergies Allergy/AdvReac Type Severity Reaction Status Date / Time erythromycin base Allergy Hives Verified 03/17/18 04:36 Penicillins Allergy Hives Verified 03/17/18 04:36 Sulfa (Sulfonamide Allergy Hives Verified 03/17/18 04:36 Antibiotics) Home Meds: Home Meds Amitriptyline [Elavil] 10 mg PO BEDTIME 06/08/16 [History] Gluc/Kieran-Msm#2/C/D3/[place]/Born [Hierzodnqc-Befyelfetlj-SPT] 1 tab PO DAILY 06/08 [History] Labetalol HCl [Labetalol] 100 mg PO BID 03/05/18 [History] hydrALAZINE HCl [Hydralazine HCl] 25 mg PO TID 30 Days tablet 03/08/18 [Rx] Ibuprofen 800 mg PO TID PRN 03/17/18 [History] traMADol [Ultram] 50 mg PO Q12HR PRN 03/17/18 [History] Past Medical History HEENT History: Reports: Other (See Below) Other HEENT History: wears glasses Cardiovascular History: Reports: Hypertension Other Cardiovascular History: "murmur as a child" Gastrointestinal History: Reports: Colon Polyp, Other (See Below) Other Gastrointestinal History: occasional heartburn Genitourinary History: Reports: None DECK BUILDER History: Reports: Fibroids, , Spontaneous Other DECK BUILDER History: hx of hysteroscopy Musculoskeletal History: Reports: Osteoarthritis Neurological History: Reports: Migraines, TIA Hematologic History: Reports: Anemia, Blood Transfusion(s) - Past Surgical History Head Surgeries/Procedures: Reports: None HEENT Surgical History: Reports: Oral Surgery Cardiovascular Surgical History: Reports: None GI Surgical History: Reports: Polypectomy Female Surgical History: Reports: Breast Biopsy Other Female Surgeries/Procedures: Hystroscopic myomectomy Neurological Surgical History: Reports: None Musculoskeletal Surgical History: Reports: None Social & Family History - Family History Family Medical History: Noncontributory - Tobacco Use Smoking Status *Q: Never Smoker Second Hand Smoke Exposure: No - Caffeine Use Caffeine Use: Reports: None - Recreational Drug Use Recreational Drug Use: No ED ROS GENERAL - Review of Systems Review Of Systems: ROS reveals no pertinent complaints other than HPI. ED EXAM, GENERAL - Physical Exam Exam: See Below Course - Vital Signs Last Recorded V/S: Last Vital Signs Temp 97.9 F 03/17/18 04:31 Pulse 70 03/17/18 06:10 Resp 17 03/17/18 06:10 BP 170/89 H 03/17/18 06:10 Pulse Ox 100 03/17/18 06:10 - Orders/Labs/Meds Orders: Active Orders 24 hr Category Date Time Status Admission Status [Patient Status] [ADT] Stat ADT 03/17/18 06:37 Ordered Cardiac Monitoring [RC] . DIRECTED Care 03/17/18 05:04 Active Cardiac Monitoring [RC] . DIRECTED Care 03/17/18 06:37 Ordered EKG Documentation Completion [RC] STAT Care 03/17/18 05:04 Active Oxygen Therapy [RC] ASDIRECTED Care 03/17/18 05:04 Active Pulse Oximetry [RC] ASDIRECTED Care 03/17/18 05:04 Active Chest 1V Frontal [CR] Stat Exams 03/17/18 05:04 Taken Sodium Chloride 0.9% [Saline Flush] Med 03/17/18 05:04 Active 10 ml FLUSH ASDIRECTED PRN Sodium Chloride 0.9% [Saline Flush] Med 03/17/18 05:04 Active 2.5 ml FLUSH ASDIRECTED PRN Sodium Chloride 0.9% [Saline Flush] Med 03/17/18 05:04 Active 2.5 ml FLUSH ASDIRECTED PRN Saline Lock Insert [OM.PC] Stat Oth 03/17/18 05:04 Ordered Medication Orders Sodium Chloride (Saline Flush) 2.5 ml FLUSH ASDIRECTED PRN PRN Reason: Keep Vein Open Sodium Chloride (Saline Flush) 10 ml FLUSH ASDIRECTED PRN PRN Reason: Keep Vein Open Sodium Chloride (Saline Flush) 2.5 ml FLUSH ASDIRECTED PRN PRN Reason: Keep Vein Open Labs: Laboratory Tests 03/17/18 03/17/18 03/17/18 Range/Units 05:05 05:05 05:05 WBC 10.46 (4.0-11.0) K/uL RBC 4.97 (4.30-5.90) M/uL Hgb 11.5 L (12.0-16.0) g/dL Hct 36.5 (36.0-46.0) % MCV 73.4 L (80.0-98.0) fL MCH 23.1 L (27.0-32.0) pg MCHC 31.5 (31.0-37.0) g/dL RDW Std Deviation 48.5 (28.0-62.0) fl RDW Coeff of Ryanne 18 H (11.0-15.0) % Plt Count 293 (150-400) K/uL MPV 10.90 (7.40-12.00) fL Neut % (Auto) 69.7 (48.0-80.0) % Lymph % (Auto) 21.4 (16.0-40.0) % [place] % (Auto) 5.3 (0.0-15.0) % Eos % (Auto) 2.9 (0.0-7.0) % Baso % (Auto) 0.7 (0.0-1.5) % Neut # (Auto) 7.3 H (1.4-5.7) K/uL Lymph # (Auto) 2.2 (0.6-2.4) K/uL [place] # (Auto) 0.6 (0.0-0.8) K/uL Eos # (Auto) 0.3 (0.0-0.7) K/uL Baso # (Auto) 0.1 (0.0-0.1) K/uL Nucleated RBC % 0.0 /100WBC Nucleated RBCs # 0 K/uL INR 1.06 Sodium 139 (136-145) mmol/L Potassium 3.6 (3.5-5.1) mmol/L Chloride 105 (98-107) mmol/L Carbon Dioxide 25.4 (21.0-32.0) mmol/L BUN 8 (7.0-18.0) mg/dL Creatinine 0.7 (0.6-1.0) mg/dL Est Cr Clr Drug Dosing 96.62 mL/min Estimated GFR (MDRD) > 60.0 ml/min Glucose 112 H (74-106) mg/dL Calcium 9.1 (8.5-10.1) mg/dL Total Bilirubin 0.8 (0.2-1.0) mg/dL AST 10 L (15-37) IU/L ALT 18 (14-63) IU/L Alkaline Phosphatase 48 (46-116) U/L Troponin I < 0.050 (0.000-0.056) ng/mL Total Protein 7.8 (6.4-8.2) g/dL Albumin 3.8 (3.4-5.0) g/dL Globulin 4.0 H (2.0-3.5) g/dL Albumin/Globulin Ratio 1.0 L (1.3-2.8) Lipase 97 (73-393) U/L TSH 3rd Generation (0.36-3.74) uIU/mL Urine Color Urine Appearance Urine pH (5.0-8.0) Ur Specific [place] (1.001-1.035) Urine Protein (NEGATIVE) mg/dL Urine Glucose (UA) (NEGATIVE) mg/dL Urine Ketones (NEGATIVE) mg/dL Urine Occult Blood (NEGATIVE) Urine Nitrite (NEGATIVE) Urine Bilirubin (NEGATIVE) Urine Urobilinogen (<2.0) EU/dL Ur Leukocyte Esterase (NEGATIVE) Urine RBC (0-2/HPF) Urine WBC (0-5/HPF) Ur Epithelial Cells (NONE-FEW) Urine Bacteria (NEGATIVE) Urine HCG, Qual (NEGATIVE) 03/17/18 03/17/1818 Range/Units 05:32 05:32 05:49 WBC (4.0-11.0) K/uL RBC (4.30-5.90) M/uL Hgb (12.0-16.0) g/dL Hct (36.0-46.0) % MCV (80.0-98.0) fL MCH (27.0-32.0) pg MCHC (31.0-37.0) g/dL RDW Std Deviation (28.0-62.0) fl RDW Coeff of Ryanne (11.0-15.0) % Plt Count (150-400) K/uL MPV (7.40-12.00) fL Neut % (Auto) (48.0-80.0) % Lymph % (Auto) (16.0-40.0) % [place] % (Auto) (0.0-15.0) % Eos % (Auto) (0.0-7.0) % Baso % (Auto) (0.0-1.5) % Neut # (Auto) (1.4-5.7) K/uL Lymph # (Auto) (0.6-2.4) K/uL [place] # (Auto) (0.0-0.8) K/uL Eos # (Auto) (0.0-0.7) K/uL Baso # (Auto) (0.0-0.1) K/uL Nucleated RBC % /100WBC Nucleated RBCs # K/uL INR Sodium (136-145) mmol/L Potassium (3.5-5.1) mmol/L Chloride (98-107) mmol/L Carbon Dioxide (21.0-32.0) mmol/L BUN (7.0-18.0) mg/dL Creatinine (0.6-1.0) mg/dL Est Cr Clr Drug Dosing mL/min Estimated GFR (MDRD) ml/min Glucose (74-106) mg/dL Calcium (8.5-10.1) mg/dL Total Bilirubin (0.2-1.0) mg/dL AST (15-37) IU/L ALT (14-63) IU/L Alkaline Phosphatase (46-116) U/L Troponin I (0.000-0.056) ng/mL Total Protein (6.4-8.2) g/dL Albumin (3.4-5.0) g/dL Globulin (2.0-3.5) g/dL Albumin/Globulin Ratio (1.3-2.8) Lipase (73-393) U/L TSH 3rd Generation 3.92 H (0.36-3.74) uIU/mL Urine Color YELLOW Urine Appearance CLEAR Urine pH 5.5 (5.0-8.0) Ur Specific [place] 1.015 (1.001-1.035) Urine Protein NEGATIVE (NEGATIVE) mg/dL Urine Glucose (UA) NEGATIVE (NEGATIVE) mg/dL Urine Ketones NEGATIVE (NEGATIVE) mg/dL Urine Occult Blood TRACE-INTACT (NEGATIVE) Urine Nitrite NEGATIVE (NEGATIVE) Urine Bilirubin NEGATIVE (NEGATIVE) Urine Urobilinogen 0.2 (<2.0) EU/dL Ur Leukocyte Esterase NEGATIVE (NEGATIVE) Urine RBC 0-1 (0-2/HPF) Urine WBC 0-1 (0-5/HPF) Ur Epithelial Cells RARE (NONE-FEW) Urine Bacteria RARE (NEGATIVE) Urine HCG, Qual NEGATIVE (NEGATIVE) Meds: Medications Generic Name Dose Route Start Last Admin Trade Name Freq PRN Reason Stop Dose Admin Sodium Chloride 2.5 ml 03/17/18 05:04 Saline Flush FLUSH ASDIRECTED PRN Keep Vein Open Sodium Chloride 10 ml 03/17/18 05:04 Saline Flush FLUSH ASDIRECTED PRN Keep Vein Open Sodium Chloride 2.5 ml 03/17/18 05:04 Saline Flush FLUSH ASDIRECTED PRN Keep Vein Open Discontinued Medications Generic Name Dose Route Start Last Admin Trade Name Freq PRN Reason Stop Dose Admin Aspirin 324 mg 03/17/18 05:04 03/17/18 05:09 Aspirin PO 03/17/18 05:05 324 mg ONETIME ONE Administration Captopril 25 mg 03/17/18 05:14 03/17/18 05:24 Capoten PO 03/17/18 05:15 25 mg ONETIME ONE Administration Hydralazine HCl 10 mg 03/17/18 05:12 03/17/18 05:27 Apresoline IVPUSH 03/17/18 05:13 Not Given ONETIME ONE Sodium Chloride 1,000 mls @ 999 mls/hr 03/17/18 05:04 03/17/18 05:11 Normal Saline IV 03/17/18 06:04 999 mls/hr BOLUS ONE Administration Ondansetron HCl 8 mg 03/17/18 05:16 03/17/18 05:26 Zofran IVPUSH 03/17/18 05:17 8 mg ONETIME ONE Administration Ondansetron HCl Confirm 03/17/18 05:19 03/17/18 05:27 Zofran Administered 03/17/18 05:20 Not Given Dose 8 mg .ROUTE .STK-MED ONE Departure - Departure Time of Disposition: 06:38 Disposition: Admitted As Inpatient 66 Condition: Fair Clinical Impression: Hypertensive emergency, Atypical chest pain Headache Qualifiers: Headache type: other vascular headache Qualified Code(s): G44.1 - Vascular headache, not elsewhere classified - Discharge Information Referrals: Augusto Witt MD [Primary Care Provider] - Forms: ED Department Discharge - My Orders Last 24 Hours: My Active Orders 03/17/18 05:04 Cardiac Monitoring [RC] . DIRECTED EKG Documentation Completion [RC] STAT Oxygen Therapy [RC] ASDIRECTED Pulse Oximetry [RC] ASDIRECTED Chest 1V Frontal [CR] Stat Sodium Chloride 0.9% [Saline Flush] 10 ml FLUSH ASDIRECTED PRN Sodium Chloride 0.9% [Saline Flush] 2.5 ml FLUSH ASDIRECTED PRN Sodium Chloride 0.9% [Saline Flush] 2.5 ml FLUSH ASDIRECTED PRN Saline Lock Insert [OM.PC] Stat 03/17/18 06:37 Admission Status [Patient Status] [ADT] Stat Cardiac Monitoring [RC] . DIRECTED - Assessment/Plan Last 24 Hours: My Active Orders 03/17/18 05:04 Cardiac Monitoring [RC] . DIRECTED EKG Documentation Completion [RC] STAT Oxygen Therapy [RC] ASDIRECTED Pulse Oximetry [RC] ASDIRECTED Chest 1V Frontal [CR] Stat Sodium Chloride 0.9% [Saline Flush] 10 ml FLUSH ASDIRECTED PRN Sodium Chloride 0.9% [Saline Flush] 2.5 ml FLUSH ASDIRECTED PRN Sodium Chloride 0.9% [Saline Flush] 2.5 ml FLUSH ASDIRECTED PRN Saline Lock Insert [OM.PC] Stat 03/17/18 06:37 Admission Status [Patient Status] [ADT] Stat Cardiac Monitoring [RC] . DIRECTED
[2018-03-17] MEDS ORDERED: Ondansetron 4 MG/2 ML SDV IVPUSH ONE (05:16)
[2018-03-17] MEDS ORDERED: Ondansetron 4 MG/2 ML SDV ONE (05:19)
[2018-03-17 05:34] LABS: CHLORIDE,CL 105 mmol/L (98-107); SODIUM,NA 139 mmol/L (136-145)
[2018-03-17] MEDS ORDERED: Ondansetron 4 MG/2 ML SDV IVPUSH PRN (09:14)
[2018-03-17] MEDS ORDERED: Nitroglycerin 0.4 MG Tab.SL SL PRN (09:20)
--- NOTE | 2018-03-17 09:44 | PCM.HP ---
H&P History of Present Illness - General Date of Service: 03/17/18 Admit Problem/Dx: Admission Diagnosis/Problem Admission Diagnosis/Problem Hypertensive emergency Source of Information: Patient History Limitations: Reports: No Limitations - History of Present Illness Initial Comments - Free Text/Narative: 47F AA with past mhx HTN, TIA, Migraines that presented to the ER with a chief complaint of headache, blurry vision, substernal chest pain that was intermittent. Patient stated that the symptoms began yesterday night. She was recently admitted to the hospital for RLQ pain that the medicine team was consulted for, ultimately dx with ruptured ovarian cyst and sent home. Patient tells me her provider at the time changed her BP meds to Hydralazine + Labetalol. She has been compliant with the medicine. Doesn't check her BP routinely. On evaluation now, she says her headache and blurry vision are better , she is not having active chest pain. ER Course: BP on admission 210/129 CBC unremarkable Troponin negative EKG NSR IV Hydralazine 10mg x1 Enalapril 25mg PO x1 headache Pain Score (Numeric/FACES): 8 - Related Data Allergies/Adverse Reactions: Allergies Allergy/AdvReac Type Severity Reaction Status Date / Time erythromycin base Allergy Hives Verified 03/17/18 09:45 Penicillins Allergy Hives Verified 03/17/18 09:45 Sulfa (Sulfonamide Allergy Hives Verified 03/17/18 09:45 Antibiotics) Home Medications: Home Meds Amitriptyline [Elavil] 10 mg PO BEDTIME 06/08/16 [History] Gluc/Kieran-Msm#2/C/D3/Orville/Born [Vorbwipmbc-Ehjbpjzxwqb-LCT] 1 tab PO DAILY 06/08 [History] Labetalol HCl [Labetalol] 100 mg PO BID 03/05/18 [History] hydrALAZINE HCl [Hydralazine HCl] 25 mg PO TID 30 Days tablet 03/08/18 [Rx] Ibuprofen 800 mg PO TID PRN 03/17/18 [History] traMADol [Ultram] 50 mg PO Q12HR PRN 03/17/18 [History] Past Medical History HEENT History: Reports: Other (See Below) Other HEENT History: wears glasses Cardiovascular History: Reports: Hypertension Other Cardiovascular History: "murmur as a child" Gastrointestinal History: Reports: Colon Polyp, Other (See Below) Other Gastrointestinal History: occasional heartburn Genitourinary History: Reports: None BROOM STITCHER History: Reports: Fibroids, , Spontaneous Other OB/BYN History: hx of hysteroscopy Musculoskeletal History: Reports: Osteoarthritis Neurological History: Reports: Migraines, TIA Hematologic History: Reports: Anemia, Blood Transfusion(s) - Past Surgical History Head Surgeries/Procedures: Reports: None HEENT Surgical History: Reports: Oral Surgery Cardiovascular Surgical History: Reports: None GI Surgical History: Reports: Polypectomy Female Surgical History: Reports: Breast Biopsy Other Female Surgeries/Procedures: Hystroscopic myomectomy Neurological Surgical History: Reports: None Musculoskeletal Surgical History: Reports: None Social & Family History - Family History Family Medical History: Noncontributory - Tobacco Use Smoking Status *Q: Never Smoker Second Hand Smoke Exposure: No - Caffeine Use Caffeine Use: Reports: None - Recreational Drug Use Recreational Drug Use: No H&P Review of Systems - Review of Systems: Review Of Systems: ROS reveals no pertinent complaints other than HPI. Exam - Exam Exam: See Below - Vital Signs Vital Signs: Last Vital Signs Temp 36.6 C 03/17/18 04:31 Pulse 72 03/17/18 06:36 Resp 17 03/17/18 06:36 BP 167/92 H 03/17/18 06:36 Pulse Ox 98 03/17/18 06:36 Weight: 77 kg - Exam General: Alert, Oriented, 4 HEENT: PERRLA, Hearing Intact, Mucosa Moist & [place], Nares Patent, Normal Nasal Septum, Posterior Pharynx Clear, Conjunctiva Clear, EOMI, EACs Clear, TMs Clear Neck: Supple, Trachea Midline, 2 Lungs: Clear to Auscultation, Normal Respiratory Effort Cardiovascular: Regular Rate, Regular Rhythm GI/Abdominal Exam: Normal Bowel Sounds, Soft, Non-Tender, No Organomegaly, No Distention, No Abnormal Bruit, No Mass, Pelvis Stable Rectal (Female) Exam: Normal Exam, Normal Rectal Tone Back Exam: Normal Inspection, Full Range of Motion, NT Extremities: Normal Inspection, Normal Range of Motion, Non-Tender, No Pedal Edema, Normal Capillary Refill Peripheral Pulses: 2+: Dorsalis Pedis (L), Dorsalis Pedis (R) Skin: Warm - Patient Data Lab Results Last 24 hrs: Laboratory Results - last 24 hr 03/17/18 03/17/18 03/17/18 Range/Units 05:05 05:05 05:05 WBC 10.46 (4.0-11.0) K/uL RBC 4.97 (4.30-5.90) M/uL Hgb 11.5 L (12.0-16.0) g/dL Hct 36.5 (36.0-46.0) % MCV 73.4 L (80.0-98.0) fL MCH 23.1 L (27.0-32.0) pg MCHC 31.5 (31.0-37.0) g/dL RDW Std Deviation 48.5 (28.0-62.0) fl RDW Coeff of Ryanne 18 H (11.0-15.0) % Plt Count 293 (150-400) K/uL MPV 10.90 (7.40-12.00) fL Neut % (Auto) 69.7 (48.0-80.0) % Lymph % (Auto) 21.4 (16.0-40.0) % [place] % (Auto) 5.3 (0.0-15.0) % Eos % (Auto) 2.9 (0.0-7.0) % Baso % (Auto) 0.7 (0.0-1.5) % Neut # (Auto) 7.3 H (1.4-5.7) K/uL Lymph # (Auto) 2.2 (0.6-2.4) K/uL [place] # (Auto) 0.6 (0.0-0.8) K/uL Eos # (Auto) 0.3 (0.0-0.7) K/uL Baso # (Auto) 0.1 (0.0-0.1) K/uL Nucleated RBC % 0.0 /100WBC Nucleated RBCs # 0 K/uL INR 1.06 Sodium 139 (136-145) mmol/L Potassium 3.6 (3.5-5.1) mmol/L Chloride 105 (98-107) mmol/L Carbon Dioxide 25.4 (21.0-32.0) mmol/L BUN 8 (7.0-18.0) mg/dL Creatinine 0.7 (0.6-1.0) mg/dL Est Cr Clr Drug Dosing 96.62 mL/min Estimated GFR (MDRD) > 60.0 ml/min Glucose 112 H (74-106) mg/dL Calcium 9.1 (8.5-10.1) mg/dL Total Bilirubin 0.8 (0.2-1.0) mg/dL AST 10 L (15-37) IU/L ALT 18 (14-63) IU/L Alkaline Phosphatase 48 (46-116) U/L Troponin I < 0.050 (0.000-0.056) ng/mL Total Protein 7.8 (6.4-8.2) g/dL Albumin 3.8 (3.4-5.0) g/dL Globulin 4.0 H (2.0-3.5) g/dL Albumin/Globulin Ratio 1.0 L (1.3-2.8) Lipase 97 (73-393) U/L TSH 3rd Generation (0.36-3.74) uIU/mL Urine Color Urine Appearance Urine pH (5.0-8.0) Ur Specific [place] (1.001-1.035) Urine Protein (NEGATIVE) mg/dL Urine Glucose (UA) (NEGATIVE) mg/dL Urine Ketones (NEGATIVE) mg/dL Urine Occult Blood (NEGATIVE) Urine Nitrite (NEGATIVE) Urine Bilirubin (NEGATIVE) Urine Urobilinogen (<2.0) EU/dL Ur Leukocyte Esterase (NEGATIVE) Urine RBC (0-2/HPF) Urine WBC (0-5/HPF) Ur Epithelial Cells (NONE-FEW) Urine Bacteria (NEGATIVE) Urine HCG, Qual (NEGATIVE) 03/17/18 03/17/18 03/17/18 Range/Units 05:32 05:32 05:49 WBC (4.0-11.0) K/uL RBC (4.30-5.90) M/uL Hgb (12.0-16.0) g/dL Hct (36.0-46.0) % MCV (80.0-98.0) fL MCH (27.0-32.0) pg MCHC (31.0-37.0) g/dL RDW Std Deviation (28.0-62.0) fl RDW Coeff of Ryanne (11.0-15.0) % Plt Count (150-400) K/uL MPV (7.40-12.00) fL Neut % (Auto) (48.0-80.0) % Lymph % (Auto) (16.0-40.0) % [place] % (Auto) (0.0-15.0) % Eos % (Auto) (0.0-7.0) % Baso % (Auto) (0.0-1.5) % Neut # (Auto) (1.4-5.7) K/uL Lymph # (Auto) (0.6-2.4) K/uL [place] # (Auto) (0.0-0.8) K/uL Eos # (Auto) (0.0-0.7) K/uL Baso # (Auto) (0.0-0.1) K/uL Nucleated RBC % /100WBC Nucleated RBCs # K/uL INR Sodium (136-145) mmol/L Potassium (3.5-5.1) mmol/L Chloride (98-107) mmol/L Carbon Dioxide (21.0-32.0) mmol/L BUN (7.0-18.0) mg/dL Creatinine (0.6-1.0) mg/dL Est Cr Clr Drug Dosing mL/min Estimated GFR (MDRD) ml/min Glucose (74-106) mg/dL Calcium (8.5-10.1) mg/dL Total Bilirubin (0.2-1.0) mg/dL AST (15-37) IU/L ALT (14-63) IU/L Alkaline Phosphatase (46-116) U/L Troponin I (0.000-0.056) ng/mL Total Protein (6.4-8.2) g/dL Albumin (3.4-5.0) g/dL Globulin (2.0-3.5) g/dL Albumin/Globulin Ratio (1.3-2.8) Lipase (73-393) U/L TSH 3rd Generation 3.92 H (0.36-3.74) uIU/mL Urine Color YELLOW Urine Appearance CLEAR Urine pH 5.5 (5.0-8.0) Ur Specific [place] 1.015 (1.001-1.035) Urine Protein NEGATIVE (NEGATIVE) mg/dL Urine Glucose (UA) NEGATIVE (NEGATIVE) mg/dL Urine Ketones NEGATIVE (NEGATIVE) mg/dL Urine Occult Blood TRACE-INTACT (NEGATIVE) Urine Nitrite NEGATIVE (NEGATIVE) Urine Bilirubin NEGATIVE (NEGATIVE) Urine Urobilinogen 0.2 (<2.0) EU/dL Ur Leukocyte Esterase NEGATIVE (NEGATIVE) Urine RBC 0-1 (0-2/HPF) Urine WBC 0-1 (0-5/HPF) Ur Epithelial Cells RARE (NONE-FEW) Urine Bacteria RARE (NEGATIVE) Urine HCG, Qual NEGATIVE (NEGATIVE) Result Diagrams: 03/17/18 05:05 03/17/18 05:05 Problem List Initiated/Reviewed/Updated: Yes Orders Last 24hrs: Active Orders 24 hr Category Date Time Status Admission Status [Patient Status] [ADT] Stat ADT 03/17/18 06:37 Active Cardiac Monitoring [RC] . DIRECTED Care 03/17/18 05:04 Active Cardiac Monitoring [RC] . DIRECTED Care 03/17/18 06:37 Active EKG Documentation Completion [RC] STAT Care 03/17/18 05:04 Active Oxygen Therapy [RC] ASDIRECTED Care 03/17/18 05:04 Active Oxygen Therapy [RC] PRN Care 03/17/18 09:15 Ordered Pulse Oximetry [RC] ASDIRECTED Care 03/17/18 05:04 Active Up ad Ginger [RC] ASDIRECTED Care 03/17/18 09:14 Ordered VTE/DVT Education [RC] PER UNIT ROUTINE Care 03/17/18 09:15 Ordered Vital Signs [RC] Q4H Care 03/17/18 09:15 Ordered Regular Diet [DIET] Diet 03/17/18 Lunch Ordered Chest 1V Frontal [CR] Stat Exams 03/17/18 05:04 Taken CBC W/O DIFF,HEMOGRAM [HEME] AM Lab 03/18/18 05:11 Ordered T4 FREE [CHEM] AM Lab 03/18/18 05:11 Ordered TROPONIN I [CHEM] Q6H Lab 03/17/18 11:00 Ordered TROPONIN I [CHEM] Q6H Lab 03/17/18 17:00 Ordered Acetaminophen [Tylenol] Med 03/17/18 09:14 Ordered 650 mg PO Q4H PRN Nitroglycerin [Nitrostat] Med 03/17/18 09:20 Ordered 0.4 mg SL Q5M PRN Ondansetron [Zofran] Med 03/17/18 09:14 Ordered 4 mg IVPUSH Q4H PRN Sodium Chloride 0.9% [Saline Flush] Med 03/17/18 05:04 Active 10 ml FLUSH ASDIRECTED PRN Sodium Chloride 0.9% [Saline Flush] Med 03/17/18 05:04 Active 2.5 ml FLUSH ASDIRECTED PRN Sodium Chloride 0.9% [Saline Flush] Med 03/17/18 05:04 Active 2.5 ml FLUSH ASDIRECTED PRN Saline Lock Insert [OM.PC] Stat Oth 03/17/18 05:04 Ordered Sequential Compression Device [OM.PC] Per Unit Routine Oth 03/17/18 09:15 Ordered Resuscitation Status Routine Resus Stat 03/17/18 09:14 Ordered Medication Orders Acetaminophen (Tylenol) 650 mg PO Q4H PRN PRN Reason: Pain (Mild 1-3)/fever Nitroglycerin (Nitrostat) 0.4 mg SL Q5M PRN PRN Reason: Chest Pain Ondansetron HCl (Zofran) 4 mg IVPUSH Q4H PRN PRN Reason: Nausea Sodium Chloride (Saline Flush) 2.5 ml FLUSH ASDIRECTED PRN PRN Reason: Keep Vein Open Sodium Chloride (Saline Flush) 10 ml FLUSH ASDIRECTED PRN PRN Reason: Keep Vein Open Sodium Chloride (Saline Flush) 2.5 ml FLUSH ASDIRECTED PRN PRN Reason: Keep Vein Open Assessment/Plan Comment:: Assessment: #1. Hypertensive urgency #2. ACS rule out #3. Elevated TSH #4. History of HTN, TIA, Migraines Plan: #1. Admit to the floor for observation. Vital signs per floor routine. Telemetry. Regular diet #2. Troponin q6h x2 #3. Nitroglycerin 0.5mg SL q5m PRN, chest pain #4. DC hydralazine, start Amlodipine 5mg PO daily. Will hold labetalol today given the already increased drop in BP, this can be restarted as an outpatient. I'd like her to f/u with me next week. #5. Obtain free t4/total 3 #6. Anticipate DC 1-2 days.
[2018-03-17] MEDS: amLODIPine 5 MG Tab PO SCH (11:20)
[2018-03-17] MEDS ORDERED: Metoprolol Tartrate 5 MG in Sodium Chloride 0.9% 50 ML IV PRN (16:23)
[2018-03-17] MEDS ORDERED: Metoprolol Tartrate 5 MG/5 ML SDV IV PRN (16:43)
[2018-03-17] MEDS: Acetaminophen 325 MG Tab PO PRN (17:18)
--- NOTE | 2018-03-17 17:18 | CR ---
EXAM DATE: 03/17/18 PATIENT'S AGE: 47 Patient: RALPH ZEPEDA Facility: [place], [place] Site . Site : [id number] Study: XRay Chest -03/17/2018 5:19:23 AM Ordering Physician: Arthur Howell Final Report: HISTORY: Chest pain with shortness of breath. COMPARISON: None available FINDINGS: A portable erect AP view of the chest was obtained at 0510 hours. The lungs are clear. No focal or diffuse infiltrates are present. The heart is normal in size. The mediastinum is normal in appearance. The osseous structures are normal in appearance for the patient`s age. IMPRESSION: NORMAL PORTABLE CHEST SINGLE VIEW. Dictated by Tanvir Armenta MD @ Mar 17 2018 5:38AM (Electronic Signature) Report Signed by Proxy. PAPO
[2018-03-18] MEDS: amLODIPine 5 MG Tab PO SCH (09:21)
--- NOTE | 2018-03-18 09:31 | PCM.DCSUM1 ---
Discharge Summary - Hospital Course Free Text/Narrative:: Admission date: 03/17/2018 Discharge date: 03/18/2018 Admission dx: #1. Hypertensive urgency #2. ACS rule out #3. Elevated TSH #4. History of HTN, TIA, Migraines Discharge dx: #1. Hypertensive urgency #2. ACS rule out - negative troponin x3 #3. Elevated TSH - slightly elevated at 3.9, normal t4/t3 studies #4. History of HTN, TIA, Migraines Hospital course: 47F with the above hx presented with a cc of headache, blurry vision found to have hypertensive urgency admitted for observation, ACS rule out because she was also complaining of intermittent chest pain. This was ruled out. Patient was very comfortable during her stay, often seen roaming the halls, talking to her friend who visited, denying all symptoms. I discontinued her hydralazine, increased labetalol, and started amlodipine. She has a f/u with Dr. Portillo. Please address her HTN at the visit along with potentially needing a statin given her hx of TIA. I didn't want to start multiple medications at once. I told her to get a BP machine and check her BP routinely. She understands and agrees to the plan. F/U: Dr. Portillo on 03/24/18 - Discharge Data Discharge Date: 03/18/18 Discharge Disposition: Home, Self-Care 01 Condition: Stable - Patient Instructions Diet: Low Sodium Activity: As Tolerated Driving: May Drive Today Showering/Bathing: May Shower Notify Provider of: Fever, Increased Pain, Swelling and Redness, Drainage, Nausea and/or Vomiting - Discharge Plan Prescriptions/Med Rec: amLODIPine Besylate [Amlodipine Besylate] 5 mg PO DAILY 30 Days #30 tablet Labetalol HCl [Labetalol] 200 mg PO BID 30 Days #120 tablet Home Medications: Home Meds Amitriptyline [Elavil] 10 mg PO BEDTIME 06/08/16 [History] Gluc/Kieran-Msm#2/C/D3/[place]/Born [Hwdnlulsug-Vyhrsjcjzsq-EFO] 1 tab PO DAILY 06/08 [History] traMADol [Ultram] 50 mg PO Q12HR PRN 03/17/18 [History] Acetaminophen [Tylenol] 650 mg PO Q4H PRN tablet 03/18/18 [Rx] Labetalol HCl [Labetalol] 200 mg PO BID 30 Days #120 tablet 03/18/18 [Rx] amLODIPine Besylate [Amlodipine Besylate] 5 mg PO DAILY 30 Days #30 tablet 03/18 [Rx] Patient Handouts: Hypertension, Gyle-qi-Oshs Referrals: Agusto Pickard MD [Resident] - 04/03/18 9:30 am - Patient Data Vitals - Most Recent: Last Vital Signs Temp 37.4 C 03/18/18 04:00 Pulse 77 03/18/18 04:00 Resp 18 03/18/18 04:00 BP 152/100 H 03/18/18 09:21 Pulse Ox 98 03/18/18 04:00 Weight - Most Recent: 77 kg I&O - Last 24 hours: Intake & Output 03/17/18 03/18/18 03/18/18 22:59 06:59 14:59 Intake Total 340 800 Output Total 400 1000 Balance -60 -200 Lab Results - Last 24 hrs: Laboratory Results - last 24 hr 03/17/18 03/17/18 03/17/18 Range/Units 11:16 11:16 17:10 WBC (4.0-11.0) K/uL RBC (4.30-5.90) M/uL Hgb (12.0-16.0) g/dL Hct (36.0-46.0) % MCV (80.0-98.0) fL MCH (27.0-32.0) pg MCHC (31.0-37.0) g/dL RDW Std Deviation (28.0-62.0) fl RDW Coeff of Ryanne (11.0-15.0) % Plt Count (150-400) K/uL MPV (7.40-12.00) fL Nucleated RBC % /100WBC Nucleated RBCs # K/uL Troponin I < 0.050 < 0.050 (0.000-0.056) ng/mL Free T4 (0.76-1.46) ng/dL Total T3 99 (87-178) ng/dL 03/18/18 03/18/18 Range/Units 05:38 05:38 WBC 8.90 (4.0-11.0) K/uL RBC 4.91 (4.30-5.90) M/uL Hgb 11.3 L (12.0-16.0) g/dL Hct 36.5 (36.0-46.0) % MCV 74.3 L (80.0-98.0) fL MCH 23.0 L (27.0-32.0) pg MCHC 31.0 (31.0-37.0) g/dL RDW Std Deviation 49.1 (28.0-62.0) fl RDW Coeff of Ryanne 18 H (11.0-15.0) % Plt Count 275 (150-400) K/uL MPV 10.70 (7.40-12.00) fL Nucleated RBC % 0.0 /100WBC Nucleated RBCs # 0 K/uL Troponin I (0.000-0.056) ng/mL Free T4 0.88 (0.76-1.46) ng/dL Total T3 (87-178) ng/dL Med Orders - Current: Current Medications Acetaminophen (Tylenol) 650 mg PO Q4H PRN PRN Reason: Pain (Mild 1-3)/fever Last Admin: 03/17/18 17:18 Dose: 650 mg Amlodipine Besylate (Norvasc) 5 mg PO DAILY CARIN Last Admin: 03/18/18 09:21 Dose: 5 mg Metoprolol Tartrate (Lopressor) 5 mg IV Q6H PRN PRN Reason: hypertension Last Admin: 03/18/18 00:00 Dose: 5 mg Nitroglycerin (Nitrostat) 0.4 mg SL Q5M PRN PRN Reason: Chest Pain Ondansetron HCl (Zofran) 4 mg IVPUSH Q4H PRN PRN Reason: Nausea Sodium Chloride (Saline Flush) 2.5 ml FLUSH ASDIRECTED PRN PRN Reason: Keep Vein Open Sodium Chloride (Saline Flush) 10 ml FLUSH ASDIRECTED PRN PRN Reason: Keep Vein Open Sodium Chloride (Saline Flush) 2.5 ml FLUSH ASDIRECTED PRN PRN Reason: Keep Vein Open Discontinued Medications Aspirin (Aspirin) 324 mg PO ONETIME ONE Stop: 03/17/18 05:05 Last Admin: 03/17/18 05:09 Dose: 324 mg Captopril (Capoten) 25 mg PO ONETIME ONE Stop: 03/17/18 05:15 Last Admin: 03/17/18 05:24 Dose: 25 mg Hydralazine HCl (Apresoline) 10 mg IVPUSH ONETIME ONE Stop: 03/17/18 05:13 Last Admin: 03/17/18 05:27 Dose: Not Given Sodium Chloride (Normal Saline) 1,000 mls @ 999 mls/hr IV BOLUS ONE Stop: 03/17/18 06:04 Last Admin: 03/17/18 05:11 Dose: 999 mls/hr Metoprolol Tartrate 5 mg/ (Sodium Chloride) 55 mls @ 100 mls/hr IV Q6H PRN PRN Reason: Hypertension Ondansetron HCl (Zofran) 8 mg IVPUSH ONETIME ONE Stop: 03/17/18 05:17 Last Admin: 03/17/18 05:26 Dose: 8 mg Ondansetron HCl (Zofran) Confirm Administered Dose 8 mg .ROUTE .STK-MED ONE Stop: 03/17/18 05:20 Last Admin: 03/17/18 05:27 Dose: Not Given
[2018-03-18] MEDS: Acetaminophen 325 MG Tab PO PRN (11:35)
[2018-03-18 11:36] VITALS: BP 148/89
== END 2018-03-18 14:30 | disposition home or self-care (01) ==
LOC: MW.ED 04:13 → MW.MS 06:37 → MW.ED 08:40
PROVIDERS: ADMIT Internal Medicine; ATTEND Internal Medicine
DX: I16.0 Hypertensive urgency (principal); R07.89 Other chest pain; Z79.899 Other long term (current) drug therapy; Z88.0 Allergy status to penicillin; Z88.2 Allergy status to sulfonamides
CPT/HCPCS: 36415; 71045; 80053; 81001; 81025; 83690; 84439; 84443; 84480; 84484; 85025; 85027; 85610; 93005; 96361; 96374; 96375; 99285; A9270; G0378; J2405; J3490; J7040

== ENCOUNTER 2023-02-13 20:07 | Emergency (ER) | payer BC ==
[2023-02-13] MEDS ORDERED: Ketorolac 30 MG/ML SDV IM ONE (22:33)
[2023-02-13 23:09] VITALS: BP 128/72; PULSE 72
== END 2023-02-13 22:45 | disposition home or self-care (01) ==
LOC: MW.ED 20:07
DX: M25.462 Effusion, left knee (principal); M25.562 Pain in left knee; I10 Essential (primary) hypertension; Z79.899 Other long term (current) drug therapy
CPT/HCPCS: 73562; 96372; 99283; J1885